=== PATIENT | male | born 1970 | race Caucasian/White ===

== ENCOUNTER 2016-12-16 00:40 | Emergency (ER) | payer MEDICAID ==
[~2016-12-16] VITALS: Ht 172.7 cm; Wt 113.0 kg
[~2016-12-16 00:40] MED LIST: ASPI-864 PO; ATOR-2 PO; ATOR20TA PO; ATROV INH; BRIM5DRO EACHEYE; CLOP75TA2 PO; EMPA1TAB5; EZET10TA PO; FENO145 PO; METF500T4 PO; METO25TA6 PO; OXYC5CAP12 PO; PROT40 PO; SERT50TA PO
[2016-12-16] MEDS ORDERED: DIAZEPAM 2 MG TABLET PO ONE (01:15)
[2016-12-16] MEDS ORDERED: KETOROLAC 60MG/2ML VIAL IM ONE (01:15)
[2016-12-16 06:13] VITALS: BP 148/88
== END 2016-12-16 06:15 | disposition home or self-care (01) ==
LOC: ER 00:41
DX: G89.29 Other chronic pain (principal); M54.5 Low back pain; I10 Essential (primary) hypertension; E11.9 Type 2 diabetes mellitus without complications; J44.9 Chronic obstructive pulmonary disease, unspecified; E78.00 Pure hypercholesterolemia, unspecified; Z88.0 Allergy status to penicillin; Z79.82 Long term (current) use of aspirin; Z86.59 Personal history of other mental and behavioral disorders; Z79.899 Other long term (current) drug therapy
CPT/HCPCS: 82962; 96372; 99283; J1885

== ENCOUNTER 2017-01-02 20:21 | Emergency (ER) | payer MEDICAID ==
[~2017-01-02] VITALS: Ht 177.8 cm; Wt 114.0 kg
[2017-01-02 21:15] VITALS: BP 111/95
== END 2017-01-02 23:44 | disposition home or self-care (01) ==
LOC: ER 22:40
DX: R51 Headache (principal); E11.9 Type 2 diabetes mellitus without complications; E78.00 Pure hypercholesterolemia, unspecified; F32.9 Major depressive disorder, single episode, unspecified; J44.9 Chronic obstructive pulmonary disease, unspecified; H40.9 Unspecified glaucoma; M19.90 Unspecified osteoarthritis, unspecified site; G43.909 Migraine, unspecified, not intractable, without status migrainosus; I51.9 Heart disease, unspecified; Z90.49 Acquired absence of other specified parts of digestive tract; Z98.890 Other specified postprocedural states; Z88.0 Allergy status to penicillin; Z79.82 Long term (current) use of aspirin; Z95.5 Presence of coronary angioplasty implant and graft; Z79.899 Other long term (current) drug therapy
CPT/HCPCS: 99282; Z7610

== ENCOUNTER 2017-02-22 12:48 | Emergency (ER) | payer MEDICAID ==
[~2017-02-22] VITALS: Ht 177.8 cm; Wt 118.0 kg
[2017-02-22] MEDS ORDERED: ACETAMINOPHEN 325MG TABLET PO ONE (13:45)
[2017-02-22 14:35] VITALS: BP 141/77
== END 2017-02-22 14:45 | disposition home or self-care (01) ==
LOC: ER 13:41
DX: M54.5 Low back pain (principal); M19.90 Unspecified osteoarthritis, unspecified site; I11.9 Hypertensive heart disease without heart failure; E11.9 Type 2 diabetes mellitus without complications; J44.9 Chronic obstructive pulmonary disease, unspecified; F32.9 Major depressive disorder, single episode, unspecified; E66.9 Obesity, unspecified; E78.00 Pure hypercholesterolemia, unspecified; Z90.49 Acquired absence of other specified parts of digestive tract; Z88.0 Allergy status to penicillin; Z79.82 Long term (current) use of aspirin; Z98.890 Other specified postprocedural states; Z68.37 Body mass index [BMI] 37.0-37.9, adult; W07.XXXA Fall from chair, initial encounter; Y93.89 Activity, other specified; Y92.018 Other place in single-family (private) house as the place of occurrence of the external cause
CPT/HCPCS: 99282

== ENCOUNTER 2017-03-15 04:32 | Emergency (ER) | payer MEDICAID ==
[~2017-03-15] VITALS: Ht 177.8 cm; Wt 118.0 kg
[2017-03-15 05:02] VITALS: BP 128/78
== END 2017-03-15 05:59 | disposition left against medical advice (07) ==
LOC: ER 04:32
DX: Z53.21 Procedure and treatment not carried out due to patient leaving prior to being seen by health care provider (principal)

== ENCOUNTER 2017-03-27 20:06 | Emergency (ER) | payer MEDICAID ==
[~2017-03-27] VITALS: Ht 177.8 cm; Wt 125.0 kg
[~2017-03-27 20:06] MED LIST changes: +CLOP75TA16 PO; -CLOP75TA2 PO; -EZET10TA PO; +ZET10 PO
[2017-03-27] MEDS ORDERED: SODIUM CHLORIDE 0.9% 1,000 ML IV ONE (20:29)
[2017-03-27 20:57] LABS: BASOPHILS % 1.5 % (0.0-2.0); HEMATOCRIT. 39.2 % (42.0-52.0); HEMOGLOBIN. 12.9 g/dL (14.0-18.0); LYMPHOCYTES % 35.9 % (20.0-50.0); MEAN CORPUSCULAR HEMOGLOBIN 28.6 pg (28.0-32.0); MEAN PLATELET VOLUME 8.6 fl (7.4-10.4); MONOCYTES % 8.8 % (2.0-8.0); NEUTROPHILS % 49.8 % (40.0-76.0); PLATELET 354 x1000/uL (130-400); RED CELL DISTRIBUTION WIDTH 13.9 % (11.6-14.6)
[2017-03-27 21:02] LABS: CHLORIDE 96 mEq/L (98-107)
[2017-03-27 21:08] LABS: CARBON DIOXIDE 24 mEq/L (21-32)
[2017-03-27] MEDS ORDERED: POTASSIUM CHLORIDE 20MEQ TABLET SR PO ONE (22:30)
[2017-03-27] MEDS ORDERED: KCL 20MEQ/100ML PREMIX 100 ML IV ONE (22:30)
[2017-03-27] MEDS ORDERED: MAGNESIUM 1 G PREMIX 100 ML IV ONE (23:30)
[2017-03-28] MEDS ORDERED: POTASSIUM CHLORIDE 20MEQ TABLET SR PO ONE (02:00)
[2017-03-28 02:42] VITALS: BP 123/69
== END 2017-03-28 02:46 | disposition home or self-care (01) ==
LOC: EDSEX → ER 20:48
DX: E87.6 Hypokalemia (principal); J44.9 Chronic obstructive pulmonary disease, unspecified; I10 Essential (primary) hypertension; E11.9 Type 2 diabetes mellitus without complications; Z79.82 Long term (current) use of aspirin; Z88.0 Allergy status to penicillin
CPT/HCPCS: 36415; 71010; 80048; 83735; 84132; 85025; 93005; 96361; 96365; 96366; 96368; 99285; J3475; J3480; Z7610; J7030

== ENCOUNTER 2017-04-01 22:50 | Inpatient (IN) | payer MEDICAID ==
[~2017-04-01] VITALS: Ht 177.8 cm; Wt 113.4 kg
[2017-04-02] MEDS ORDERED: SODIUM CHLORIDE 0.9% 1,000 ML IV ONE (00:26)
[2017-04-02] MEDS ORDERED: ONDANSETRON HCL 4MG/2ML VIAL IV STA (00:26)
[2017-04-02] MEDS ORDERED: MORPHINE SULFATE 4 MG/ML CPJ (NOT FOR IM USE) IV STA (00:26)
[2017-04-02 01:48] LABS: BASOPHILS % 0.8 % (0.0-2.0); EOSINOPHILS % 2.2 % (0.0-5.0); HEMATOCRIT. 38.5 % (42.0-52.0); HEMOGLOBIN. 12.7 g/dL (14.0-18.0); LYMPHOCYTES % 28.5 % (20.0-50.0); MEAN CORPUSCULAR HEMOGLOBIN 28.9 pg (28.0-32.0); MEAN CORPUSCULAR VOLUME 87.6 fL (80.0-94.0); MEAN PLATELET VOLUME 8.3 fl (7.4-10.4); MONOCYTES % 7.5 % (2.0-8.0); PLATELET 326 x1000/uL (130-400); RED CELL DISTRIBUTION WIDTH 14.2 % (11.6-14.6)
[2017-04-02 01:54] LABS: INR 1.1; PROTHROMBIN TIME 11.5 sec (9.4-11.6)
[2017-04-02 02:02] LABS: CARBON DIOXIDE 27 mEq/L (21-32); CHLORIDE 100 mEq/L (98-107); TROPONIN I < 0.02 ng/mL (0.00-0.04)
[2017-04-02] MEDS ORDERED: PANTOPRAZOLE SODIUM 40 MG/VIAL IV STA (02:45)
[2017-04-02] MEDS ORDERED: MORPHINE SULFATE 2 MG/ML CPJ (NOT FOR IM USE) IV PRN (08:15)
[2017-04-02 10:42] LABS: CLARITY URINE CLEAR (CLEAR); COLOR URINE YELLOW (YELLOW); GLUCOSE URINE 3+ (NEGATIVE); KETONES URINE NEGATIVE (NEGATIVE); LEUKOCYTE ESTERASE URINE NEGATIVE (NEGATIVE); NITRITE URINE NEGATIVE (NEGATIVE); OCCULT BLOOD URINE NEGATIVE (NEGATIVE); PH URINE 6.5 (4.5-8.0); PROTEIN URINE NEGATIVE (NEGATIVE); SPECIFIC GRAVITY URINE 1.041 (1.005-1.030)
[2017-04-02] MEDS ORDERED: ACETAMINOPHEN 325MG TABLET PO PRN (10:45)
[2017-04-02] MEDS ORDERED: ONDANSETRON HCL 4MG/2ML VIAL IV PRN (10:45)
[2017-04-02] MEDS ORDERED: IPRATROPIUM/ALBUTEROL 0.5-3(2.5)MG/3ML NEB INH PRN (10:45)
[2017-04-02] MEDS ORDERED: PANTOPRAZOLE SODIUM 40 MG/VIAL IV SCH ×2 (10:45→13:00)
[2017-04-02 11:58] VITALS: BP 106/64
[2017-04-02] MEDS ORDERED: SIMETHICONE 40 MG/0.6 ML 30ML ONE ×2 (13:26→13:40)
[2017-04-02] MEDS ORDERED: FENTANYL CITRATE/PF 50MCG/ML 2ML VIAL ONE (13:26)
[2017-04-02] MEDS ORDERED: MIDAZOLAM HCL 5 MG/5 ML VIAL ONE (13:26)
[2017-04-02] MEDS ORDERED: SODIUM CHLORIDE 0.9% 10ML VIAL ONE (13:40)
[2017-04-02] MEDS ORDERED: POTASSIUM CHLORIDE INJ 40 MEQ in DEXT 5% WATER 250 ML IV ONE (14:00)
[2017-04-02] MEDS ORDERED: DEXT 5%/0.45% NACL KCL 20MEQ/L 1,000 ML IV SCH (14:00)
[2017-04-02 14:25] LABS: HEPATITIS B SURFACE ANTIGEN NEGATIVE
[2017-04-02] MEDS ORDERED: MIDAZOLAM HCL 5 MG/5 ML VIAL IV PRN (14:47)
[2017-04-02] MEDS ORDERED: FENTANYL CITRATE/PF 50MCG/ML 2ML VIAL IV PRN (14:47)
[2017-04-02 14:52] LABS: HEPATITIS B CORE AB IGM NEGATIVE
[2017-04-02 14:53] LABS: HEPATITIS A AB IGM NEGATIVE (NEGATIVE)
[2017-04-02] MEDS ORDERED: OMEPRAZOLE 20MG CAPSULE EXTENDED RELEASE PO NR (15:15)
[2017-04-02 16:00] VITALS: BP 118/62
[2017-04-02] MEDS ORDERED: NAPROXEN PO (16:07)
[2017-04-02] MEDS ORDERED: TRAM50TA3 PO (16:07)
[2017-04-02] MEDS ORDERED: CLAR10 PO (16:07)
[2017-04-02] MEDS ORDERED: HYDR-523 PO (16:07)
[2017-04-02] MEDS ORDERED: GABA-290 PO (16:07)
[2017-04-02] MEDS ORDERED: PRILOSEC PO (16:07)
[2017-04-02] MEDS ORDERED: VENTOLIN (16:07)
[2017-04-02] MEDS ORDERED: IBUPROFEN PO (16:07)
[2017-04-02] MEDS ORDERED: FURO-151 PO (16:07)
[2017-04-02] MEDS ORDERED: LISI10TA5 PO (16:07)
[2017-04-02 17:27] VITALS: BP 118/62
[2017-04-02] MEDS ORDERED: PNEUMOCOCCAL 23-VAL P-SAC VAC 0.5 ML IM ONE (18:30)
[2017-04-02 20:00] VITALS: BP 100/48
[2017-04-02] MEDS ORDERED: DEXTROSE 50% WATER 50ML SYRINGE IV PRN (20:15)
[2017-04-02] MEDS: BLOOD SUGAR DIAGNOSTIC STRIP TEST SCH (21:00)
[2017-04-02] MEDS: INSULIN LISPRO 100 UNITS/ML SUBCUT SCH (21:00)
[2017-04-02] MEDS: TRAZODONE HCL 100MG TABLET PO SCH (22:32)
[2017-04-02] MEDS: ATORVASTATIN CALCIUM 40MG TABLET PO SCH (22:32)
[2017-04-02 22:33] VITALS: BP 100/67
[2017-04-02] MEDS: MORPHINE SULFATE 4 MG/ML CPJ (NOT FOR IM USE) IV PRN (22:54)
[2017-04-03] VITALS: BP 103/60
[2017-04-03 04:00] VITALS: BP 111/59
[2017-04-03] MEDS: OMEPRAZOLE 20MG CAPSULE EXTENDED RELEASE PO SCH (06:40)
[2017-04-03] MEDS: BLOOD SUGAR DIAGNOSTIC STRIP TEST SCH ×4 (06:41→20:24)
[2017-04-03] MEDS: INSULIN LISPRO 100 UNITS/ML SUBCUT SCH ×4 (06:42→20:53)
[2017-04-03 07:37] LABS: CARBON DIOXIDE 29 mEq/L (21-32); CHLORIDE 103 mEq/L (98-107)
[2017-04-03 07:42] LABS: BASOPHILS % 0.8 % (0.0-2.0); EOSINOPHILS % 3.5 % (0.0-5.0); HEMATOCRIT. 33.6 % (42.0-52.0); HEMOGLOBIN. 10.9 g/dL (14.0-18.0); LYMPHOCYTES % 35.4 % (20.0-50.0); MEAN CORPUSCULAR HEMOGLOBIN 28.9 pg (28.0-32.0); MEAN CORPUSCULAR VOLUME 88.8 fL (80.0-94.0); MEAN PLATELET VOLUME 8.3 fl (7.4-10.4); MONOCYTES % 7.5 % (2.0-8.0); NEUTROPHILS % 52.8 % (40.0-76.0); PLATELET 275 x1000/uL (130-400); RED BLOOD CELL COUNT 3.78 mill/uL (4.7-6.1); RED CELL DISTRIBUTION WIDTH 14.2 % (11.6-14.6)
[2017-04-03 08:00] VITALS: BP 112/79
[2017-04-03] MEDS: METOPROLOL TARTRATE 25MG TABLET PO SCH ×3 (08:29→17:00)
[2017-04-03 12:00] VITALS: BP 111/62
[2017-04-03 16:00] VITALS: BP 95/68
[2017-04-03] MEDS: DEXT 5%/0.45% NACL KCL 20MEQ/L 1,000 ML IV SCH (19:07)
[2017-04-03 20:00] VITALS: BP 96/43
[2017-04-03] MEDS: TRAZODONE HCL 100MG TABLET PO SCH (20:51)
[2017-04-03] MEDS: ATORVASTATIN CALCIUM 40MG TABLET PO SCH (20:51)
[2017-04-03] MEDS: MORPHINE SULFATE 4 MG/ML CPJ (NOT FOR IM USE) IV PRN (20:52)
[2017-04-04] VITALS: BP 90/46
[2017-04-04 04:00] VITALS: BP 97/52
[2017-04-04] MEDS: BLOOD SUGAR DIAGNOSTIC STRIP TEST SCH ×2 (05:56→12:31)
[2017-04-04] MEDS: OMEPRAZOLE 20MG CAPSULE EXTENDED RELEASE PO SCH (05:59)
[2017-04-04] MEDS: INSULIN LISPRO 100 UNITS/ML SUBCUT SCH ×2 (06:08→12:51)
[2017-04-04 07:15] LABS: CHLORIDE 104 mEq/L (98-107)
[2017-04-04 07:24] LABS: CARBON DIOXIDE 26 mEq/L (21-32)
[2017-04-04 08:00] VITALS: BP 130/67
[2017-04-04] MEDS ORDERED: POTASSIUM CHLORIDE 20MEQ TABLET SR PO NR (09:15)
[2017-04-04] MEDS: METOPROLOL TARTRATE 25MG TABLET PO SCH (09:58)
[2017-04-04 12:00] VITALS: BP 113/68
[2017-04-04] MEDS: DEXT 5%/0.45% NACL KCL 20MEQ/L 1,000 ML IV SCH (12:55)
[2017-04-04 13:13] VITALS: BP 113/68
== END 2017-04-04 13:40 | disposition home or self-care (01) | DRG 241 ==
LOC: EDSEX → ER 22:56 → 5WST 04-02 05:40 → EDBEDREQ 04-02 06:02 → ENRESERV 04-02 10:16
PROVIDERS: ADMIT Internal Medicine; ATTEND Internal Medicine
PROC: 0DB68ZX Excision of Stomach, Via Natural or Artificial Opening Endoscopic, Diagnostic (ICD-10-PCS; principal; 2017-04-02 14:00)
DX: K29.70 Gastritis, unspecified, without bleeding (principal); E11.40 Type 2 diabetes mellitus with diabetic neuropathy, unspecified; I10 Essential (primary) hypertension; D64.9 Anemia, unspecified; E78.5 Hyperlipidemia, unspecified; E87.6 Hypokalemia; F32.9 Major depressive disorder, single episode, unspecified; G47.00 Insomnia, unspecified; G47.33 Obstructive sleep apnea (adult) (pediatric); G89.29 Other chronic pain; I25.10 Atherosclerotic heart disease of native coronary artery without angina pectoris; K76.9 Liver disease, unspecified; K29.00 Acute gastritis without bleeding; M19.90 Unspecified osteoarthritis, unspecified site; J44.9 Chronic obstructive pulmonary disease, unspecified; Z79.82 Long term (current) use of aspirin; Z95.5 Presence of coronary angioplasty implant and graft; Z88.0 Allergy status to penicillin; Z79.84 Long term (current) use of oral hypoglycemic drugs; Z79.899 Other long term (current) drug therapy
CPT/HCPCS: 36415; 71010; 72100; 76705; 80048; 80053; 80076; 81001; 82962; 83605; 83690; 83735; 84484; 85025; 85610; 86677; 86705; 86709; 86803; 87340; 90732; 93005; 93306; 93970; 96374; 96375; 99285; A4216; C9113; J1815; J2250; J2270; J2405; J3010; J3480; J7030; J7040; J7060

== ENCOUNTER 2017-04-18 14:07 | Emergency (ER) | payer MEDICAID ==
[~2017-04-18] VITALS: Ht 175.3 cm; Wt 80.0 kg
[~2017-04-18 14:07] MED LIST changes: -ATOR20TA PO; -ATROV INH; +CLAR10 PO; +FURO-151 PO; +GABA-290 PO; +HYDR-523 PO; +LISI10TA5 PO; -METF500T4 PO; -OXYC5CAP12 PO; +TRAM50TA3 PO; -ZET10 PO
[2017-04-18] MEDS ORDERED: KETOROLAC 30MG/ML VIAL IV STA (14:41)
[2017-04-18] MEDS ORDERED: SODIUM CHLORIDE 0.9% 1,000 ML IV ONE (14:41)
[2017-04-18] MEDS ORDERED: METOCLOPRAMIDE HCL 10MG/2ML VIAL IV ONE (14:45)
[2017-04-18 15:05] VITALS: BP 135/55
== END 2017-04-18 15:49 | disposition home or self-care (01) ==
LOC: EDSEX 14:07 → ER 14:27
DX: R51 Headache (principal); J44.9 Chronic obstructive pulmonary disease, unspecified; F32.9 Major depressive disorder, single episode, unspecified; E11.40 Type 2 diabetes mellitus with diabetic neuropathy, unspecified; Z79.82 Long term (current) use of aspirin; Z88.0 Allergy status to penicillin
CPT/HCPCS: 96361; 96374; 96375; 99284; J1885; J2765; J7030; Z7610

== ENCOUNTER 2017-09-01 20:09 | Emergency (ER) | payer MEDICAID ==
[~2017-09-01] VITALS: Ht 177.8 cm; Wt 115.2 kg
[2017-09-01] MEDS ORDERED: ONDANSETRON HCL 4MG/2ML VIAL IV STA (23:17)
[2017-09-01] MEDS ORDERED: MORPHINE SULFATE 4 MG/ML CPJ (NOT FOR IM USE) IV STA (23:17)
[2017-09-02 00:41] LABS: HEMATOCRIT. 35.3 % (42.0-52.0); HEMOGLOBIN. 11.3 g/dL (14.0-18.0); LYMPHOCYTES % 24.2 % (20.0-50.0); MEAN CORPUSCULAR HEMOGLOBIN 28.2 pg (28.0-32.0); MEAN CORPUSCULAR VOLUME 88.3 fL (80.0-94.0); MONOCYTES % 6.4 % (2.0-8.0); NEUTROPHILS % 64.4 % (40.0-76.0); PLATELET 356 x1000/uL (130-400); RED CELL DISTRIBUTION WIDTH 14.9 % (11.6-14.6)
[2017-09-02 00:48] LABS: CHLORIDE 102 mEq/L (98-107)
[2017-09-02] MEDS ORDERED: GABAPENTIN 300MG CAPSULE PO ONE (02:30)
[2017-09-02] MEDS ORDERED: MORPHINE SULFATE 4 MG/ML CPJ (NOT FOR IM USE) IV ONE (02:30)
[2017-09-02 03:00] VITALS: BP 123/77
[2017-09-02] MEDS ORDERED: GABAPENTIN 300MG CAPSULE PO NR (03:15)
== END 2017-09-02 04:28 | disposition home or self-care (01) ==
LOC: ER 22:47
DX: G50.0 Trigeminal neuralgia (principal); E11.9 Type 2 diabetes mellitus without complications; I10 Essential (primary) hypertension; E78.00 Pure hypercholesterolemia, unspecified; F32.9 Major depressive disorder, single episode, unspecified; I25.10 Atherosclerotic heart disease of native coronary artery without angina pectoris; Z88.0 Allergy status to penicillin; Z79.82 Long term (current) use of aspirin; Z79.01 Long term (current) use of anticoagulants
CPT/HCPCS: 36415; 70450; 80048; 85025; 96374; 96375; 96376; 99285; J2270; J2405; Z7610

== ENCOUNTER 2017-09-07 18:44 | Emergency (ER) | payer MEDICAID ==
[~2017-09-07] VITALS: Ht 177.8 cm; Wt 113.0 kg
[2017-09-07 19:27] VITALS: BP 141/72
[2017-09-07] MEDS ORDERED: IBUPROFEN 800MG TABLET PO ONE (20:00)
[2017-09-07] MEDS ORDERED: HYDROCODONE/APAP 7.5/325MG 1 TAB TABLET PO ONE (20:00)
== END 2017-09-07 21:10 | disposition home or self-care (01) ==
LOC: ER 20:54
DX: G89.18 Other acute postprocedural pain (principal); H57.11 Ocular pain, right eye; I10 Essential (primary) hypertension; E11.9 Type 2 diabetes mellitus without complications; E78.00 Pure hypercholesterolemia, unspecified
CPT/HCPCS: 99283; Z7610

== ENCOUNTER 2017-11-06 10:08 | Emergency (ER) | payer MEDICAID ==
[~2017-11-06] VITALS: Ht 177.8 cm; Wt 109.0 kg
[~2017-11-06 10:08] MED LIST changes: +ALBU18HF2 INH; -EMPA1TAB5; +EMPA1TAB5 PO; +FLUT100B IH; +IBUP-2029 PO; -TRAM50TA3 PO; +TRAZ-132 PO
[2017-11-06 10:45] LABS: BASOPHILS % 1.6 % (0.0-2.0); EOSINOPHILS % 2.4 % (0.0-5.0); HEMATOCRIT. 42.6 % (42.0-52.0); HEMOGLOBIN. 13.9 g/dL (14.0-18.0); LYMPHOCYTES % 25.2 % (20.0-50.0); MEAN CORPUSCULAR HEMOGLOBIN 27.7 pg (28.0-32.0); MEAN CORPUSCULAR VOLUME 84.9 fL (80.0-94.0); MEAN PLATELET VOLUME 8.4 fl (7.4-10.4); MONOCYTES % 7.1 % (2.0-8.0); NEUTROPHILS % 63.7 % (40.0-76.0); PLATELET 331 x1000/uL (130-400); RED BLOOD CELL COUNT 5.01 mill/uL (4.7-6.1); RED CELL DISTRIBUTION WIDTH 14.9 % (11.6-14.6)
[2017-11-06 10:50] LABS: CHLORIDE 102 mEq/L (98-107)
[2017-11-06 11:15] LABS: PROTHROMBIN TIME 10.7 sec (9.4-11.6)
[2017-11-06] MEDS ORDERED: SODIUM CHLORIDE 0.9% 1,000 ML IV NR (11:45)
[2017-11-06] MEDS ORDERED: ASPIRIN 81MG TABLET PO ONE (13:30)
[2017-11-06] MEDS ORDERED: ACETAMINOPHEN 325MG TABLET PO ONE (16:15)
[2017-11-06 17:07] VITALS: BP 119/55
== END 2017-11-06 17:10 | disposition home or self-care (01) ==
LOC: ER 10:08
DX: I10 Essential (primary) hypertension (principal); E86.0 Dehydration; D64.9 Anemia, unspecified; R79.89 Other specified abnormal findings of blood chemistry; J44.9 Chronic obstructive pulmonary disease, unspecified; E78.00 Pure hypercholesterolemia, unspecified; E11.9 Type 2 diabetes mellitus without complications; Z88.0 Allergy status to penicillin; Z79.82 Long term (current) use of aspirin; Z79.01 Long term (current) use of anticoagulants
CPT/HCPCS: 36415; 71045; 80053; 83880; 84484; 85025; 85610; 93005; 96360; 96361; 99285

== ENCOUNTER 2017-11-14 20:48 | Emergency (ER) | payer MEDICAID ==
[~2017-11-14] VITALS: Ht 177.8 cm; Wt 105.0 kg
[~2017-11-14 20:48] MED LIST changes: -ALBU18HF2 INH
[2017-11-15] MEDS ORDERED: KETOROLAC 60MG/2ML VIAL IM STA (04:51)
[2017-11-15 06:54] VITALS: BP 107/59
== END 2017-11-15 07:04 | disposition home or self-care (01) ==
LOC: ER 11-15 00:32
DX: M54.2 Cervicalgia (principal); Q75.1 Craniofacial dysostosis; E78.00 Pure hypercholesterolemia, unspecified; E11.9 Type 2 diabetes mellitus without complications; J45.909 Unspecified asthma, uncomplicated; I10 Essential (primary) hypertension; Z88.0 Allergy status to penicillin; Z79.82 Long term (current) use of aspirin; Z90.49 Acquired absence of other specified parts of digestive tract; Z98.890 Other specified postprocedural states
CPT/HCPCS: 96372; 99283; J1885; Z7610

== ENCOUNTER 2017-11-18 19:09 | Emergency (ER) | payer MEDICAID ==
[~2017-11-18] VITALS: Ht 177.8 cm; Wt 104.0 kg
[2017-11-19] MEDS ORDERED: KETOROLAC 30MG/ML VIAL IM ONE (08:00)
[2017-11-19] MEDS ORDERED: ACETAMINOPHEN WITH CODEINE 300/30MG TABLET PO ONE (10:30)
[2017-11-19] MEDS ORDERED: MORPHINE SULFATE 10 MG/ML CPJ IM ONE (13:30)
[2017-11-19] MEDS ORDERED: ONDANSETRON HCL 4MG TABLET PO ONE (13:30)
[2017-11-19 16:45] VITALS: BP 98/48
== END 2017-11-19 17:15 | disposition home or self-care (01) ==
LOC: ER 19:09
DX: G89.29 Other chronic pain (principal); M54.5 Low back pain; M54.2 Cervicalgia; R20.0 Anesthesia of skin; R20.2 Paresthesia of skin; J45.909 Unspecified asthma, uncomplicated; E78.00 Pure hypercholesterolemia, unspecified; E11.9 Type 2 diabetes mellitus without complications; Z88.0 Allergy status to penicillin; Z79.82 Long term (current) use of aspirin
CPT/HCPCS: 82962; 96372; 99284; J1885; J2270; Q0162

== ENCOUNTER 2017-12-11 22:55 | Inpatient (IN) | payer MEDICAID ==
[~2017-12-11] VITALS: Ht 177.8 cm; Wt 107.5 kg
[2017-12-12] MEDS ORDERED: SODIUM CHLORIDE 0.9% 1,000 ML IV ONE (02:25)
[2017-12-12 03:02] LABS: BASOPHILS % 0.8 % (0.0-2.0); EOSINOPHILS % 3.4 % (0.0-5.0); HEMATOCRIT. 41.2 % (42.0-52.0); HEMOGLOBIN. 13.7 g/dL (14.0-18.0); LYMPHOCYTES % 32.4 % (20.0-50.0); MEAN CORPUSCULAR HEMOGLOBIN 28.1 pg (28.0-32.0); MEAN CORPUSCULAR VOLUME 84.5 fL (80.0-94.0); MEAN PLATELET VOLUME 8.1 fl (7.4-10.4); MONOCYTES % 7.6 % (2.0-8.0); NEUTROPHILS % 55.8 % (40.0-76.0); PLATELET 461 x1000/uL (130-400); RED BLOOD CELL COUNT 4.87 mill/uL (4.7-6.1); RED CELL DISTRIBUTION WIDTH 15.8 % (11.6-14.6)
[2017-12-12 03:04] LABS: CHLORIDE 96 mEq/L (98-107)
[2017-12-12 03:05] LABS: INR 1.1
[2017-12-12 03:08] LABS: ETHANOL BLOOD < 10 mg/dL
[2017-12-12] MEDS ORDERED: KETOROLAC 15MG/ML VIAL IV ONE (04:00)
[2017-12-12 05:19] LABS: CLARITY URINE CLEAR (CLEAR); COLOR URINE YELLOW (YELLOW); KETONES URINE NEGATIVE (NEGATIVE); LEUKOCYTE ESTERASE URINE NEGATIVE (NEGATIVE); NITRITE URINE NEGATIVE (NEGATIVE); OCCULT BLOOD URINE NEGATIVE (NEGATIVE); PROTEIN URINE NEGATIVE (NEGATIVE); SPECIFIC GRAVITY URINE 1.018 (1.005-1.030); UROBILINOGEN URINE 0.2 E.U./dL (0.2-1.0)
[2017-12-12 05:33] LABS: *AMPHETAMINES SCREEN URINE NEGATIVE (NEGATIVE); *BARBITURATES SCREEN URINE NEGATIVE (NEGATIVE); *BENZODIAZEPINES SCREEN URINE NEGATIVE (NEGATIVE); *COCAINE SCREEN URINE NEGATIVE (NEGATIVE); METHADONE URINE SCREEN NEGATIVE (NEGATIVE); OPIATES URINE SCREEN NEGATIVE (NEGATIVE)
[2017-12-12 05:34] LABS: CANNABINOID URINE SCREEN NEGATIVE (NEGATIVE); PHENCYCLIDINE URINE SCREEN NEGATIVE (NEGATIVE)
[2017-12-12 09:00] VITALS: BP_SYST 91; BP_SYST 99; BP_DIAS 53; BP_DIAS 57
[2017-12-12] MEDS ORDERED: DEXTROSE 50% WATER 50ML SYRINGE IV PRN (11:30)
[2017-12-12 12:00] VITALS: BP 98/54
[2017-12-12] MEDS: BLOOD SUGAR DIAGNOSTIC STRIP TEST SCH ×3 (12:20→21:00)
[2017-12-12] MEDS: SODIUM CHLORIDE 0.9% 1,000 ML IV SCH (12:54)
[2017-12-12] MEDS: INSULIN LISPRO 100 UNITS/ML SUBCUT SCH ×3 (14:12→21:00)
[2017-12-12] MEDS ORDERED: CLONIDINE 0.1MG TABLET PO PRN (14:15)
[2017-12-12] MEDS ORDERED: ACETAMINOPHEN 325MG TABLET PO PRN (14:15)
[2017-12-12] MEDS ORDERED: IPRATROPIUM/ALBUTEROL 0.5-3(2.5)MG/3ML NEB INH PRN (14:15)
[2017-12-12] MEDS ORDERED: ONDANSETRON 4MG ODT PO PRN (14:30)
[2017-12-12 16:00] VITALS: BP 101/60
[2017-12-12] MEDS: METOPROLOL TARTRATE 25MG TABLET PO SCH (17:00)
[2017-12-12] MEDS: CLOPIDOGREL 75MG TABLET PO SCH (18:52)
[2017-12-12] MEDS: PANTOPRAZOLE 40MG DR TABLET PO SCH (18:52)
[2017-12-12] MEDS: ASPIRIN 81MG EC TABLET PO SCH (18:52)
[2017-12-12] MEDS: FENOFIBRATE NANOCRYSTALLIZED 145MG TABLET PO SCH (18:52)
[2017-12-12] MEDS: SERTRALINE HCL 100MG TABLET PO SCH (18:53)
[2017-12-12] MEDS: ENOXAPARIN 40MG/0.4ML SYR SUBCUT SCH (18:53)
[2017-12-12 19:59] VITALS: BP 105/56
[2017-12-12] MEDS: TRAZODONE HCL 100MG TABLET PO SCH (21:00)
[2017-12-12 21:09] LABS: *AMPHETAMINES SCREEN URINE NEGATIVE (NEGATIVE); *BARBITURATES SCREEN URINE NEGATIVE (NEGATIVE); *BENZODIAZEPINES SCREEN URINE NEGATIVE (NEGATIVE); *COCAINE SCREEN URINE NEGATIVE (NEGATIVE)
[2017-12-12 21:10] LABS: CANNABINOID URINE SCREEN NEGATIVE (NEGATIVE); METHADONE URINE SCREEN NEGATIVE (NEGATIVE); OPIATES URINE SCREEN NEGATIVE (NEGATIVE); PHENCYCLIDINE URINE SCREEN NEGATIVE (NEGATIVE)
[2017-12-13] VITALS: BP 104/64
[2017-12-13] MEDS: SODIUM CHLORIDE 0.9% 1,000 ML IV SCH ×2 (00:06→11:14)
[2017-12-13 00:23] LABS: CREATINE KINASE 134 IU/L (39-308)
[2017-12-13 00:27] LABS: CREATINE KINASE MB FRACTION 2.8 ng/mL (0.5-3.6)
[2017-12-13 04:00] VITALS: BP 101/67
[2017-12-13] MEDS: BLOOD SUGAR DIAGNOSTIC STRIP TEST SCH ×3 (06:24→21:00)
[2017-12-13 07:08] LABS: BASOPHILS % 0.8 % (0.0-2.0); EOSINOPHILS % 3.2 % (0.0-5.0); HEMOGLOBIN. 12.7 g/dL (14.0-18.0); LYMPHOCYTES % 25.9 % (20.0-50.0); MEAN CORPUSCULAR HEMOGLOBIN 27.8 pg (28.0-32.0); MEAN CORPUSCULAR VOLUME 85.1 fL (80.0-94.0); MEAN PLATELET VOLUME 8.3 fl (7.4-10.4); NEUTROPHILS % 63.1 % (40.0-76.0); PLATELET 334 x1000/uL (130-400); RED BLOOD CELL COUNT 4.58 mill/uL (4.7-6.1); RED CELL DISTRIBUTION WIDTH 16.2 % (11.6-14.6)
[2017-12-13] MEDS ORDERED: PANTOPRAZOLE 40MG DR TABLET PO SCH (07:20)
[2017-12-13] MEDS: PANTOPRAZOLE 40MG DR TABLET PO SCH (07:20)
[2017-12-13] MEDS: INSULIN LISPRO 100 UNITS/ML SUBCUT SCH ×2 (07:50→12:50)
[2017-12-13 07:54] LABS: CHLORIDE 103 mEq/L (98-107)
[2017-12-13 08:00] VITALS: BP 109/75
[2017-12-13 08:14] LABS: CREATINE KINASE 93 IU/L (39-308)
[2017-12-13 08:17] LABS: CREATINE KINASE MB FRACTION 1.8 ng/mL (0.5-3.6)
[2017-12-13] MEDS ORDERED: FENOFIBRATE NANOCRYSTALLIZED 145MG TABLET PO SCH (09:00)
[2017-12-13] MEDS ORDERED: SERTRALINE HCL 100MG TABLET PO SCH (09:00)
[2017-12-13] MEDS: ASPIRIN 81MG EC TABLET PO SCH (09:05)
[2017-12-13] MEDS: METOPROLOL TARTRATE 25MG TABLET PO SCH ×2 (09:06→18:13)
[2017-12-13] MEDS: CLOPIDOGREL 75MG TABLET PO SCH (09:06)
[2017-12-13] MEDS: SERTRALINE HCL 100MG TABLET PO SCH (09:07)
[2017-12-13] MEDS: FENOFIBRATE NANOCRYSTALLIZED 145MG TABLET PO SCH (09:16)
[2017-12-13] MEDS: HYDROCODONE/ACETAMINOPHEN 5/325MG TABLET PO PRN ×2 (10:24→17:47)
[2017-12-13 12:00] VITALS: BP 107/72
[2017-12-13] MEDS: ENOXAPARIN 40MG/0.4ML SYR SUBCUT SCH (15:23)
[2017-12-13 16:00] VITALS: BP 118/78
[2017-12-13] MEDS ORDERED: MORPHINE SULFATE 4 MG/ML CPJ (NOT FOR IM USE) IV NR (18:30)
[2017-12-13] MEDS: TRAZODONE HCL 100MG TABLET PO SCH (22:26)
[2017-12-14] VITALS: BP 92/52
[2017-12-14] MEDS: SODIUM CHLORIDE 0.9% 1,000 ML IV SCH (03:30)
[2017-12-14 04:00] VITALS: BP 100/39
[2017-12-14] MEDS: BLOOD SUGAR DIAGNOSTIC STRIP TEST SCH ×2 (07:20→11:23)
[2017-12-14] MEDS: INSULIN LISPRO 100 UNITS/ML SUBCUT SCH ×2 (07:50→11:23)
[2017-12-14] MEDS: SERTRALINE HCL 100MG TABLET PO SCH (08:00)
[2017-12-14] MEDS: PANTOPRAZOLE 40MG DR TABLET PO SCH (08:14)
[2017-12-14] MEDS: CLOPIDOGREL 75MG TABLET PO SCH (08:32)
[2017-12-14] MEDS: ASPIRIN 81MG EC TABLET PO SCH (08:33)
[2017-12-14] MEDS: FENOFIBRATE NANOCRYSTALLIZED 145MG TABLET PO SCH (08:33)
[2017-12-14] MEDS: METOPROLOL TARTRATE 25MG TABLET PO SCH (08:34)
[2017-12-14 08:49] VITALS: BP 111/63
[2017-12-14] MEDS: HYDROCODONE/ACETAMINOPHEN 5/325MG TABLET PO PRN (10:19)
[2017-12-14 12:00] VITALS: BP 138/82
== END 2017-12-14 14:35 | disposition home or self-care (01) | DRG 469 ==
LOC: ER 22:55 → 6WST 12-12 04:14 → EDBEDREQ 12-12 04:23 → ENRESERV 12-12 08:00
PROVIDERS: ADMIT Internal Medicine; ATTEND Internal Medicine
DX: N17.0 Acute kidney failure with tubular necrosis (principal); I95.9 Hypotension, unspecified; E11.65 Type 2 diabetes mellitus with hyperglycemia; E87.1 Hypo-osmolality and hyponatremia; M48.02 Spinal stenosis, cervical region; I10 Essential (primary) hypertension; D72.829 Elevated white blood cell count, unspecified; E78.5 Hyperlipidemia, unspecified; F32.9 Major depressive disorder, single episode, unspecified; I25.10 Atherosclerotic heart disease of native coronary artery without angina pectoris; J45.909 Unspecified asthma, uncomplicated; K21.9 Gastro-esophageal reflux disease without esophagitis; M50.30 Other cervical disc degeneration, unspecified cervical region; M51.36 Other intervertebral disc degeneration, lumbar region; R55 Syncope and collapse; M48.061 Spinal stenosis, lumbar region without neurogenic claudication; Z79.899 Other long term (current) drug therapy; Z95.5 Presence of coronary angioplasty implant and graft; Z88.0 Allergy status to penicillin; Z79.82 Long term (current) use of aspirin; I25.2 Old myocardial infarction
CPT/HCPCS: 36415; 70450; 71045; 80048; 80053; 80305; 81003; 82550; 82553; 82962; 84484; 85025; 85610; 93005; 93970; G0482; J1650; J1815; J1885; J2270; J7030

== ENCOUNTER 2018-01-22 12:03 | Emergency (ER) | payer MEDICAID ==
[~2018-01-22] VITALS: Ht 177.8 cm; Wt 107.0 kg
[~2018-01-22 12:03] MED LIST changes: -FURO-151 PO
[2018-01-22] MEDS ORDERED: MORPHINE SULFATE 10 MG/ML CPJ IM ONE (14:45)
[2018-01-22] MEDS ORDERED: KETOROLAC 30MG/ML VIAL IM ONE (14:45)
[2018-01-22] MEDS ORDERED: HYDROCODONE/ACETAMINOPHEN 5/325MG TABLET PO ONE (18:45)
[2018-01-22 18:52] VITALS: BP 129/70
== END 2018-01-22 19:28 | disposition home or self-care (01) ==
LOC: ER 12:03
DX: R51 Headache (principal); I10 Essential (primary) hypertension; E11.9 Type 2 diabetes mellitus without complications; E78.00 Pure hypercholesterolemia, unspecified; Z88.0 Allergy status to penicillin
CPT/HCPCS: 70450; 96372; 99284; J1885; J2270; Z7610

== ENCOUNTER 2018-04-02 18:05 | Emergency (ER) | payer MEDICAID ==
[~2018-04-02] VITALS: Ht 177.8 cm; Wt 113.0 kg
[~2018-04-02 18:05] MED LIST changes: -TRAZ-132 PO; +TRAZ-213 PO
[2018-04-02] MEDS ORDERED: METOCLOPRAMIDE HCL 10MG/2ML VIAL IV ONE (19:15)
[2018-04-02] MEDS ORDERED: KETOROLAC 15MG/ML VIAL IV ONE (19:15)
[2018-04-02] MEDS ORDERED: DIPHENHYDRAMINE 50MG/ML VIAL IV ONE (19:15)
[2018-04-02] MEDS ORDERED: SODIUM CHLORIDE 0.9% 1,000 ML IV ONE (19:15)
[2018-04-02 21:47] VITALS: BP 119/69
== END 2018-04-02 21:55 | disposition home or self-care (01) ==
LOC: ER 18:24
DX: R51 Headache (principal); I10 Essential (primary) hypertension; E11.9 Type 2 diabetes mellitus without complications; E78.00 Pure hypercholesterolemia, unspecified; Z79.899 Other long term (current) drug therapy; Z79.82 Long term (current) use of aspirin; Z88.0 Allergy status to penicillin; Z90.49 Acquired absence of other specified parts of digestive tract
CPT/HCPCS: 96361; 96374; 96375; 99285; J1200; J1885; J2765; J7030; Z7610

== ENCOUNTER 2019-01-21 16:47 | Inpatient (IN) | payer MEDICAID ==
[~2019-01-21] VITALS: Ht 177.8 cm; Wt 108.0 kg
[~2019-01-21 16:47] MED LIST changes: -CLOP75TA16 PO; +CLOP75TA4 PO
[2019-01-21 17:24] LABS: BASOPHILS % 1.3 % (0.0-2.0); EOSINOPHILS % 3.1 % (0.0-5.0); HEMATOCRIT. 43.1 % (42.0-52.0); HEMOGLOBIN. 14.1 g/dL (14.0-18.0); LYMPHOCYTES % 26.3 % (20.0-50.0); MEAN CORPUSCULAR HEMOGLOBIN 30.2 pg (28.0-32.0); MEAN CORPUSCULAR VOLUME 92.4 fL (80.0-94.0); MEAN PLATELET VOLUME 7.8 fl (7.4-10.4); MONOCYTES % 5.9 % (2.0-8.0); NEUTROPHILS % 63.4 % (40.0-76.0); PLATELET 402 x1000/uL (130-400); RED BLOOD CELL COUNT 4.66 mill/uL (4.7-6.1); RED CELL DISTRIBUTION WIDTH 13.9 % (11.6-14.6)
[2019-01-21 17:26] LABS: CHLORIDE 98 mEq/L (98-107)
[2019-01-21 17:30] LABS: ETHANOL BLOOD < 10 mg/dL
[2019-01-21 17:31] LABS: PARTIAL THROMBOPLASTIN TIME 27.1 sec (23.4-31.0)
[2019-01-21] MEDS ORDERED: ONDANSETRON HCL 4MG/2ML INJ IV ONE (21:45)
[2019-01-21] MEDS ORDERED: MORPHINE SULFATE 4 MG/ML CPJ (NOT FOR IM USE) IV ONE (21:45)
[2019-01-21 21:55] LABS: CLARITY URINE CLEAR (CLEAR); COLOR URINE YELLOW (YELLOW); KETONES URINE NEGATIVE (NEGATIVE); LEUKOCYTE ESTERASE URINE NEGATIVE (NEGATIVE); NITRITE URINE NEGATIVE (NEGATIVE); OCCULT BLOOD URINE NEGATIVE (NEGATIVE); PROTEIN URINE NEGATIVE (NEGATIVE); UROBILINOGEN URINE 0.2 E.U./dL (0.2-1.0)
[2019-01-21 22:16] LABS: METHADONE URINE SCREEN NEGATIVE (NEGATIVE); OPIATES URINE SCREEN PRESUMTIVE POSITIVE (NEGATIVE); PHENCYCLIDINE URINE SCREEN NEGATIVE (NEGATIVE)
[2019-01-21 22:17] LABS: *AMPHETAMINES SCREEN URINE NEGATIVE (NEGATIVE); *BARBITURATES SCREEN URINE NEGATIVE (NEGATIVE); *BENZODIAZEPINES SCREEN URINE PRESUMTIVE POSITIVE (NEGATIVE); *COCAINE SCREEN URINE NEGATIVE (NEGATIVE); CANNABINOID URINE SCREEN NEGATIVE (NEGATIVE)
[2019-01-22] VITALS (8 sets, daily range): BP systolic 101–131; BP diastolic 59–76
[2019-01-22] MEDS ORDERED: DEXTROSE 50% WATER 50ML SYRINGE IV PRN (04:15)
[2019-01-22] MEDS ORDERED: ALBUTEROL (0.083%) 2.5MG/3ML NEB HHN PRN (04:15)
[2019-01-22] MEDS ORDERED: ONDANSETRON HCL 4MG/2ML INJ IV PRN (04:15)
[2019-01-22] MEDS: BLOOD SUGAR DIAGNOSTIC STRIP TEST SCH ×4 (06:23→21:40)
[2019-01-22] MEDS: MORPHINE SULFATE 4 MG/ML CPJ (NOT FOR IM USE) IV PRN ×3 (06:26→21:40)
[2019-01-22 07:14] LABS: BASOPHILS % 0.6 % (0.0-2.0); EOSINOPHILS % 2.8 % (0.0-5.0); HEMATOCRIT. 38.8 % (42.0-52.0); HEMOGLOBIN. 12.8 g/dL (14.0-18.0); LYMPHOCYTES % 25.8 % (20.0-50.0); MEAN CORPUSCULAR HEMOGLOBIN 30.3 pg (28.0-32.0); MEAN CORPUSCULAR VOLUME 92.3 fL (80.0-94.0); MEAN PLATELET VOLUME 7.9 fl (7.4-10.4); MONOCYTES % 8.1 % (2.0-8.0); NEUTROPHILS % 62.7 % (40.0-76.0); PLATELET 345 x1000/uL (130-400)
[2019-01-22] MEDS: INSULIN LISPRO 100 UNITS/ML SUBCUT SCH ×4 (07:40→21:39)
[2019-01-22 07:41] LABS: CHLORIDE 100 mEq/L (98-107)
[2019-01-22 08:12] LABS: CREATINE KINASE MB FRACTION < 1.0 ng/mL (0.5-3.6)
[2019-01-22] MEDS: GABAPENTIN 400MG CAPSULE PO SCH ×2 (08:18→16:33)
[2019-01-22] MEDS: SERTRALINE HCL 100MG TABLET PO SCH (08:18)
[2019-01-22] MEDS: LISINOPRIL 10MG TABLET PO SCH (08:19)
[2019-01-22] MEDS: ASPIRIN 81MG TABLET PO SCH (08:19)
[2019-01-22] MEDS: CLOPIDOGREL 75MG TABLET PO SCH (08:19)
[2019-01-22] MEDS: FENOFIBRATE NANOCRYSTALLIZED 145MG TABLET PO SCH (11:42)
[2019-01-22 16:24] LABS: CREATINE KINASE MB FRACTION < 1.0 ng/mL (0.5-3.6)
[2019-01-22] MEDS: MORPHINE SULFATE 2 MG/ML CPJ (NOT FOR IM USE) IV PRN (18:45)
[2019-01-22] MEDS: ATORVASTATIN CALCIUM 40MG TABLET PO SCH (21:40)
[2019-01-23 04:00] VITALS: BP 109/71
[2019-01-23] MEDS: BLOOD SUGAR DIAGNOSTIC STRIP TEST SCH ×4 (06:18→20:53)
[2019-01-23] MEDS: MORPHINE SULFATE 2 MG/ML CPJ (NOT FOR IM USE) IV PRN ×3 (06:27→20:57)
[2019-01-23] MEDS: INSULIN LISPRO 100 UNITS/ML SUBCUT SCH ×4 (06:31→20:53)
[2019-01-23 08:00] VITALS: BP 100/60
[2019-01-23] MEDS: ASPIRIN 81MG TABLET PO SCH (08:39)
[2019-01-23] MEDS: CLOPIDOGREL 75MG TABLET PO SCH (08:39)
[2019-01-23] MEDS: FENOFIBRATE NANOCRYSTALLIZED 145MG TABLET PO SCH (08:39)
[2019-01-23] MEDS: GABAPENTIN 400MG CAPSULE PO SCH ×2 (08:39→16:26)
[2019-01-23] MEDS: SERTRALINE HCL 100MG TABLET PO SCH (08:40)
[2019-01-23] MEDS: LISINOPRIL 10MG TABLET PO SCH (09:00)
[2019-01-23 12:00] VITALS: BP 122/77
[2019-01-23 20:00] VITALS: BP 109/73
[2019-01-23] MEDS: ATORVASTATIN CALCIUM 40MG TABLET PO SCH (20:57)
[2019-01-23 23:37] VITALS: BP 116/67
[2019-01-24] MEDS: MORPHINE SULFATE 4 MG/ML CPJ (NOT FOR IM USE) IV PRN ×3 (02:23→16:14)
[2019-01-24 04:00] VITALS: BP 113/80
[2019-01-24] MEDS: BLOOD SUGAR DIAGNOSTIC STRIP TEST SCH ×4 (06:10→21:00)
[2019-01-24] MEDS: INSULIN LISPRO 100 UNITS/ML SUBCUT SCH ×4 (06:10→22:22)
[2019-01-24 08:00] VITALS: BP 92/51
[2019-01-24] MEDS: LISINOPRIL 10MG TABLET PO SCH (09:00)
[2019-01-24] MEDS: FENOFIBRATE NANOCRYSTALLIZED 145MG TABLET PO SCH (09:10)
[2019-01-24] MEDS: CLOPIDOGREL 75MG TABLET PO SCH (09:10)
[2019-01-24] MEDS: SERTRALINE HCL 100MG TABLET PO SCH (09:10)
[2019-01-24] MEDS: ASPIRIN 81MG TABLET PO SCH (09:10)
[2019-01-24] MEDS: GABAPENTIN 400MG CAPSULE PO SCH ×2 (09:10→17:04)
[2019-01-24 12:00] VITALS: BP 103/66
[2019-01-24 16:00] VITALS: BP 113/84
[2019-01-24 20:00] VITALS: BP_SYST 104; BP_SYST 106; BP_SYST 122; BP_DIAS 62; BP_DIAS 68; BP_DIAS 69
[2019-01-24 21:38] VITALS: BP 122/62
[2019-01-24] MEDS: HYDROCODONE/ACETAMINOPHEN 10/325MG TABLET PO PRN (22:00)
[2019-01-24] MEDS: ATORVASTATIN CALCIUM 40MG TABLET PO SCH (22:07)
[2019-01-25] VITALS (8 sets, daily range): BP systolic 101–165; BP diastolic 56–89
[2019-01-25] MEDS: BLOOD SUGAR DIAGNOSTIC STRIP TEST SCH ×3 (06:37→17:25)
[2019-01-25] MEDS: INSULIN LISPRO 100 UNITS/ML SUBCUT SCH ×3 (06:37→18:00)
[2019-01-25] MEDS: FENOFIBRATE NANOCRYSTALLIZED 145MG TABLET PO SCH (09:16)
[2019-01-25] MEDS: LISINOPRIL 10MG TABLET PO SCH (09:16)
[2019-01-25] MEDS: SERTRALINE HCL 100MG TABLET PO SCH (09:16)
[2019-01-25] MEDS: ASPIRIN 81MG TABLET PO SCH (09:16)
[2019-01-25] MEDS: CLOPIDOGREL 75MG TABLET PO SCH (09:16)
[2019-01-25] MEDS: GABAPENTIN 400MG CAPSULE PO SCH ×2 (09:16→17:59)
[2019-01-25] MEDS: HYDROCODONE/ACETAMINOPHEN 10/325MG TABLET PO PRN (12:10)
== END 2019-01-25 21:00 | disposition home or self-care (01) | DRG 198 ==
LOC: ER 16:47 → EDBEDREQ 20:16 → 8WST 20:25 → EDBEDREQ 20:28 → EDBEDREQTM 20:28 → ENRESERV 22:40 → 8WST 01-22 01:46
PROVIDERS: ADMIT Internal Medicine; ATTEND Internal Medicine
DX: R07.89 Other chest pain (principal); I25.10 Atherosclerotic heart disease of native coronary artery without angina pectoris; M48.02 Spinal stenosis, cervical region; E78.00 Pure hypercholesterolemia, unspecified; I10 Essential (primary) hypertension; M48.061 Spinal stenosis, lumbar region without neurogenic claudication; G89.29 Other chronic pain; H33.20 Serous retinal detachment, unspecified eye; E11.9 Type 2 diabetes mellitus without complications; M50.80 Other cervical disc disorders, unspecified cervical region; M51.86 Other intervertebral disc disorders, lumbar region; E78.5 Hyperlipidemia, unspecified; Z91.19 Patient's noncompliance with other medical treatment and regimen; Z86.73 Personal history of transient ischemic attack (TIA), and cerebral infarction without residual deficits; Z90.49 Acquired absence of other specified parts of digestive tract; Z95.5 Presence of coronary angioplasty implant and graft; Z88.0 Allergy status to penicillin; Z79.899 Other long term (current) drug therapy
CPT/HCPCS: 36415; 70544; 70553; 71045; 72100; 73560; 80305; 80320; 82553; 82962; 83880; 84484; 93005; 93306; 93880; 97110; 97162; 97166; 97530; 99285; J1815; J2270; J2405; G0480

== ENCOUNTER 2019-02-11 20:24 | Inpatient (IN) | payer MEDICAID ==
[~2019-02-11] VITALS: Ht 154.9 cm; Wt 112.0 kg
[2019-02-12] MEDS ORDERED: KETOROLAC 30MG/ML VIAL IV STA (01:12)
[2019-02-12] MEDS ORDERED: ASPIRIN 81MG TABLET PO ONE (01:15)
[2019-02-12] MEDS: NITROGLYCERIN 0.4MG TABLET SL SL PRN ×2 (01:36→02:15)
[2019-02-12 02:09] LABS: EOSINOPHILS % 2.5 % (0.0-5.0); HEMATOCRIT. 41.4 % (42.0-52.0); HEMOGLOBIN. 13.5 g/dL (14.0-18.0); LYMPHOCYTES % 23.7 % (20.0-50.0); MEAN CORPUSCULAR HEMOGLOBIN 30.3 pg (28.0-32.0); MEAN CORPUSCULAR VOLUME 92.7 fL (80.0-94.0); MEAN PLATELET VOLUME 7.7 fl (7.4-10.4); MONOCYTES % 7.1 % (2.0-8.0); NEUTROPHILS % 65.7 % (40.0-76.0); PLATELET 411 x1000/uL (130-400); RED BLOOD CELL COUNT 4.46 mill/uL (4.7-6.1); RED CELL DISTRIBUTION WIDTH 13.5 % (11.6-14.6)
[2019-02-12 02:15] LABS: CHLORIDE 100 mEq/L (98-107)
[2019-02-12 03:00] LABS: PARTIAL THROMBOPLASTIN TIME 30.9 sec (23.4-31.0); PROTHROMBIN TIME 10.7 sec (9.6-11.0)
[2019-02-12] MEDS ORDERED: MORPHINE SULFATE 4 MG/ML CPJ (NOT FOR IM USE) IV NR (03:45)
[2019-02-12 06:48] VITALS: BP 120/77
[2019-02-12 08:54] VITALS: BP 112/81
[2019-02-12] MEDS ORDERED: DEXTROSE 50% WATER 50ML SYRINGE IV PRN (09:45)
[2019-02-12] MEDS ORDERED: LEVE1000 PO (10:24)
[2019-02-12] MEDS ORDERED: AMLO2.5T2 PO (10:24)
[2019-02-12] MEDS ORDERED: TRAZ150T78 PO (10:24)
[2019-02-12] MEDS ORDERED: MIDO10TA PO (10:25)
[2019-02-12] MEDS ORDERED: BACL-141 PO (10:28)
[2019-02-12] MEDS ORDERED: MECL-115 PO (10:28)
[2019-02-12] MEDS ORDERED: METH500T6 PO (10:33)
[2019-02-12] MEDS ORDERED: GABA300S PO (10:37)
[2019-02-12] MEDS ORDERED: ACETAMINOPHEN PO PRN (10:45)
[2019-02-12] MEDS ORDERED: AMLODIPINE BESYLATE 2.5 MG PO SCH (10:45)
[2019-02-12] MEDS ORDERED: MEDICATION NOT ON FORMULARY EA (Pantoprazole Sodium (Protonix) 40 MG) PO SCH (10:45)
[2019-02-12] MEDS ORDERED: HYDROCODONE PO PRN (10:45)
[2019-02-12] MEDS ORDERED: IBUPROFEN 600 MG PO PRN (10:45)
[2019-02-12] MEDS ORDERED: LORATADINE 10MG TABLET PO SCH (11:30)
[2019-02-12] MEDS ORDERED: IBUPROFEN 600MG TABLET PO PRN (11:45)
[2019-02-12] MEDS: CLOPIDOGREL 75MG TABLET PO SCH (11:45)
[2019-02-12] MEDS: ASPIRIN 81MG EC TABLET PO SCH (11:45)
[2019-02-12] MEDS: BLOOD SUGAR DIAGNOSTIC STRIP TEST SCH ×3 (11:46→20:41)
[2019-02-12] MEDS: INSULIN LISPRO 100 UNITS/ML SUBCUT SCH ×3 (11:46→20:41)
[2019-02-12] MEDS: MECLIZINE 25MG TABLET PO SCH ×2 (12:30→17:12)
[2019-02-12] MEDS: PANTOPRAZOLE 40MG DR TABLET PO SCH (12:30)
[2019-02-12] MEDS: AMLODIPINE 2.5MG TABLET PO SCH (12:31)
[2019-02-12] MEDS: MIDODRINE HCL 5MG TABLET PO SCH ×2 (12:32→17:12)
[2019-02-12 12:35] VITALS: BP 117/74
[2019-02-12] MEDS ORDERED: MECLIZINE HCL 25 MG PO SCH (13:00)
[2019-02-12] MEDS ORDERED: MEDICATION NOT ON FORMULARY EA (Midodrine Hcl 10 MG) PO SCH (13:00)
[2019-02-12] MEDS: METHOCARBAMOL 500MG TABLET PO SCH ×2 (13:37→17:12)
[2019-02-12] MEDS: HYDROCODONE/ACETAMINOPHEN 5/325MG TABLET PO PRN ×3 (13:38→23:27)
[2019-02-12 16:10] VITALS: BP 114/66
[2019-02-12] MEDS ORDERED: MEDICATION NOT ON FORMULARY EA (Gabapentin 1,200 MG) PO SCH (17:00)
[2019-02-12] MEDS ORDERED: LEVETIRACETAM PO SCH (17:00)
[2019-02-12] MEDS: FENOFIBRATE NANOCRYSTALLIZED 145MG TABLET PO SCH (17:11)
[2019-02-12] MEDS: GABAPENTIN 400MG CAPSULE PO SCH (17:13)
[2019-02-12] MEDS: LEVETIRACETAM 500MG TABLET PO SCH (17:13)
[2019-02-12 17:59] LABS: CREATINE KINASE 197 IU/L (39-308)
[2019-02-12 18:00] LABS: CREATINE KINASE MB FRACTION 2.1 ng/mL (0.5-3.6)
[2019-02-12 20:24] VITALS: BP 104/64
[2019-02-12] MEDS: LORATADINE 10MG TABLET PO SCH (20:42)
[2019-02-12] MEDS: ATORVASTATIN CALCIUM 40MG TABLET PO SCH (20:42)
[2019-02-12] MEDS: TRAZODONE HCL 50MG TABLET PO SCH (20:42)
[2019-02-12] MEDS: ENOXAPARIN 30MG/0.3ML SYR SUBCUT SCH (20:43)
[2019-02-12] MEDS ORDERED: MEDICATION NOT ON FORMULARY EA (Trazodone Hcl 150 MG) PO SCH (21:00)
[2019-02-13] VITALS (8 sets, daily range): BP systolic 96–125; BP diastolic 53–76
[2019-02-13 00:05] LABS: CREATINE KINASE 153 IU/L (39-308)
[2019-02-13 00:06] LABS: CREATINE KINASE MB FRACTION 1.8 ng/mL (0.5-3.6)
[2019-02-13] MEDS: HYDROCODONE/ACETAMINOPHEN 5/325MG TABLET PO PRN (05:23)
[2019-02-13] MEDS: PANTOPRAZOLE 40MG DR TABLET PO SCH (06:28)
[2019-02-13] MEDS: BLOOD SUGAR DIAGNOSTIC STRIP TEST SCH ×4 (07:24→21:06)
[2019-02-13] MEDS: AMLODIPINE 2.5MG TABLET PO SCH (09:00)
[2019-02-13] MEDS ORDERED: FLUTICASONE FUROATE 100 1 INH/CAP ORI SCH (09:00)
[2019-02-13] MEDS: LEVETIRACETAM 500MG TABLET PO SCH ×2 (09:03→17:18)
[2019-02-13] MEDS: FENOFIBRATE NANOCRYSTALLIZED 145MG TABLET PO SCH (09:04)
[2019-02-13] MEDS: GABAPENTIN 400MG CAPSULE PO SCH ×2 (09:05→17:23)
[2019-02-13] MEDS: METHOCARBAMOL 500MG TABLET PO SCH ×3 (09:05→17:18)
[2019-02-13] MEDS: ASPIRIN 81MG EC TABLET PO SCH (09:06)
[2019-02-13] MEDS: CLOPIDOGREL 75MG TABLET PO SCH (09:06)
[2019-02-13] MEDS: MECLIZINE 25MG TABLET PO SCH ×3 (09:06→17:18)
[2019-02-13] MEDS: MIDODRINE HCL 5MG TABLET PO SCH ×5 (09:06→17:18)
[2019-02-13] MEDS: ENOXAPARIN 30MG/0.3ML SYR SUBCUT SCH ×2 (09:07→21:06)
[2019-02-13] MEDS: INSULIN LISPRO 100 UNITS/ML SUBCUT SCH ×4 (09:09→21:50)
[2019-02-13 09:38] LABS: HEMATOCRIT 37.9 % (42.0-52.0); HEMOGLOBIN 12.6 g/dL (14.0-18.0); MEAN CORPUSCULAR HEMOGLOBIN 30.5 pg (28.0-32.0); PLATELET 385 x1000/uL (130-400); RED BLOOD CELL COUNT 4.12 mill/uL (4.7-6.1); RED CELL DISTRIBUTION WIDTH 13.5 % (11.6-14.6)
[2019-02-13 09:58] LABS: CHLORIDE 104 mEq/L (98-107)
[2019-02-13 10:08] LABS: CREATINE KINASE 96 IU/L (39-308)
[2019-02-13] MEDS ORDERED: REGADENOSON 0.4 MG/5 ML IV ONE (10:45)
[2019-02-13] MEDS: LORATADINE 10MG TABLET PO SCH (21:05)
[2019-02-13] MEDS: TRAZODONE HCL 50MG TABLET PO SCH (21:05)
[2019-02-13] MEDS: ATORVASTATIN CALCIUM 40MG TABLET PO SCH (21:05)
[2019-02-14 04:00] VITALS: BP 109/64
[2019-02-14] MEDS: INSULIN LISPRO 100 UNITS/ML SUBCUT SCH ×3 (07:00→17:14)
[2019-02-14] MEDS: BLOOD SUGAR DIAGNOSTIC STRIP TEST SCH ×2 (07:00→17:02)
[2019-02-14] MEDS: PANTOPRAZOLE 40MG DR TABLET PO SCH (07:00)
[2019-02-14 08:00] VITALS: BP 104/62
[2019-02-14] MEDS: ASPIRIN 81MG EC TABLET PO SCH (09:00)
[2019-02-14] MEDS: CLOPIDOGREL 75MG TABLET PO SCH (09:00)
[2019-02-14] MEDS: LEVETIRACETAM 500MG TABLET PO SCH ×2 (09:00→17:12)
[2019-02-14] MEDS: FENOFIBRATE NANOCRYSTALLIZED 145MG TABLET PO SCH (09:00)
[2019-02-14] MEDS: GABAPENTIN 400MG CAPSULE PO SCH ×2 (09:00→17:17)
[2019-02-14] MEDS: AMLODIPINE 2.5MG TABLET PO SCH (09:00)
[2019-02-14] MEDS: ENOXAPARIN 30MG/0.3ML SYR SUBCUT SCH (09:00)
[2019-02-14] MEDS ORDERED: REGADENOSON 0.4 MG/5 ML IV ONE (09:58)
[2019-02-14] MEDS ORDERED: NITROGLYCERIN 0.4MG TABLET SL SL ONE (10:34)
[2019-02-14] MEDS ORDERED: IOHEXOL-300 100 ML BOTTLE ONE (11:04)
[2019-02-14] MEDS ORDERED: LIDOCAINE HCL 1% 20ML VIAL (Pyxis) INJ ONE (11:05)
[2019-02-14] MEDS ORDERED: IODIXANOL 320MG/ML 100 ML BOTTLE IV ONE (11:05)
[2019-02-14] MEDS ORDERED: FENTANYL CITRATE/PF 50MCG/ML 2ML VIAL ONE (11:15)
[2019-02-14] MEDS ORDERED: MIDAZOLAM HCL 2 MG/2 ML VIAL ONE (11:15)
[2019-02-14] MEDS ORDERED: ACETAMINOPHEN 325MG TABLET PO PRN ×2 (11:45)
[2019-02-14] MEDS ORDERED: ATROPINE SULFATE 1MG/10ML SYR IV PRN ×2 (11:45)
[2019-02-14] MEDS: MECLIZINE 25MG TABLET PO SCH (13:00)
[2019-02-14] MEDS: MIDODRINE HCL 5MG TABLET PO SCH ×2 (13:00→17:12)
[2019-02-14] MEDS: METHOCARBAMOL 500MG TABLET PO SCH (13:00)
[2019-02-14 14:00] VITALS: BP 136/49
[2019-02-14 15:59] VITALS: BP 136/49
[2019-02-14 16:00] VITALS: BP 124/82
[2019-02-14 17:13] VITALS: BP 136/49
[2019-02-14] MEDS: HYDROCODONE/ACETAMINOPHEN 5/325MG TABLET PO PRN (17:13)
== END 2019-02-14 19:03 | disposition home or self-care (01) | DRG 192 ==
LOC: ER 20:24 → 6WST 02-12 03:31 → ENRESERV 02-12 04:49 → 3WST 02-14 12:05
PROVIDERS: ADMIT Internal Medicine; ATTEND Internal Medicine
PROC: 4A023N7 Measurement of Cardiac Sampling and Pressure, Left Heart, Percutaneous Approach (ICD-10-PCS; principal; 2019-02-14)
PROC: B2111ZZ Fluoroscopy of Multiple Coronary Arteries using Low Osmolar Contrast (ICD-10-PCS; 2019-02-14)
PROC: B2151ZZ Fluoroscopy of Left Heart using Low Osmolar Contrast (ICD-10-PCS; 2019-02-14)
DX: R07.89 Other chest pain (principal); M48.02 Spinal stenosis, cervical region; I48.91 Unspecified atrial fibrillation; E11.9 Type 2 diabetes mellitus without complications; I25.10 Atherosclerotic heart disease of native coronary artery without angina pectoris; M48.061 Spinal stenosis, lumbar region without neurogenic claudication; J44.9 Chronic obstructive pulmonary disease, unspecified; I10 Essential (primary) hypertension; K21.9 Gastro-esophageal reflux disease without esophagitis; H40.9 Unspecified glaucoma; E78.00 Pure hypercholesterolemia, unspecified; G89.4 Chronic pain syndrome; F32.9 Major depressive disorder, single episode, unspecified; M50.90 Cervical disc disorder, unspecified, unspecified cervical region; F41.9 Anxiety disorder, unspecified; E78.2 Mixed hyperlipidemia; M19.90 Unspecified osteoarthritis, unspecified site; I25.2 Old myocardial infarction; Z59.0 Homelessness; Z76.5 Malingerer [conscious simulation]; Z86.73 Personal history of transient ischemic attack (TIA), and cerebral infarction without residual deficits; Z90.49 Acquired absence of other specified parts of digestive tract; Z95.5 Presence of coronary angioplasty implant and graft; Z88.0 Allergy status to penicillin; Z79.82 Long term (current) use of aspirin; Z79.899 Other long term (current) drug therapy
CPT/HCPCS: 36415; 71045; 78452; 80048; 82550; 82553; 82962; 83880; 84484; 85027; 93005; 93017; 93458; 96374; 96375; 99285; A9500; C1769; C1887; C1893; J1644; J1650; J1815; J1885; J2250; J2270; J2785; J3010; J3490; J8597; Q9967

== ENCOUNTER 2019-05-02 19:18 | Inpatient (IN) | payer MEDICAID ==
[~2019-05-02] VITALS: Ht 177.8 cm; Wt 103.9 kg
[~2019-05-02 19:18] MED LIST changes: +AMLO2.5T2 PO; +BACL-141 PO; -GABA-290 PO; +GABA300S PO; +LEVE1000 PO; -LISI10TA5 PO; +MECL-115 PO; +METH500T6 PO; -METO25TA6 PO; +MIDO10TA PO; -SERT50TA PO; -TRAZ-213 PO; +TRAZ150T78 PO
[2019-05-02 21:50] LABS: BASOPHILS % 0.9 % (0.0-2.0); EOSINOPHILS % 2.8 % (0.0-5.0); HEMATOCRIT. 40.7 % (42.0-52.0); HEMOGLOBIN. 13.5 g/dL (14.0-18.0); LYMPHOCYTES % 24.2 % (20.0-50.0); MEAN CORPUSCULAR HEMOGLOBIN 30.4 pg (28.0-32.0); MEAN CORPUSCULAR VOLUME 91.4 fL (80.0-94.0); MEAN PLATELET VOLUME 7.5 fl (7.4-10.4); MONOCYTES % 6.6 % (2.0-8.0); NEUTROPHILS % 65.5 % (40.0-76.0); PLATELET 413 x1000/uL (130-400); RED BLOOD CELL COUNT 4.45 mill/uL (4.7-6.1); RED CELL DISTRIBUTION WIDTH 13.2 % (11.6-14.6)
[2019-05-02 21:56] LABS: CHLORIDE 102 mEq/L (98-107); PROTHROMBIN TIME 10.3 sec (9.6-11.0)
[2019-05-02] MEDS ORDERED: ASPIRIN 81MG TABLET PO ONE (23:00)
[2019-05-03 04:00] VITALS: BP 158/89
[2019-05-03] MEDS ORDERED: ONDANSETRON HCL 4MG/2ML INJ IV PRN (05:00)
[2019-05-03] MEDS ORDERED: IPRATROPIUM/ALBUTEROL 0.5-3(2.5)MG/3ML NEB NEB PRN (05:00)
[2019-05-03] MEDS ORDERED: ENOXAPARIN 40MG/0.4ML SYR SUBCUT SCH (05:00)
[2019-05-03] MEDS ORDERED: ACETAMINOPHEN 325MG TABLET PO PRN (05:00)
[2019-05-03] MEDS ORDERED: DOCUSATE SODIUM 100MG CAPSULE PO PRN (05:00)
[2019-05-03] MEDS ORDERED: GUAIFENESIN 200MG/10ML SUGAR FREE UDC PO PRN (05:00)
[2019-05-03] MEDS ORDERED: HYDROCODONE/ACETAMINOPHEN 5/325MG TABLET PO PRN (05:00)
[2019-05-03] MEDS ORDERED: MAGNESIUM/ALUMINUM HYDROXIDE/SIMETHICONE 30ML UDC PO PRN (05:00)
[2019-05-03] MEDS ORDERED: LORAZEPAM 2MG/ML CPJ IV PRN (05:00)
[2019-05-03] MEDS ORDERED: CLONIDINE 0.1MG TABLET PO PRN (05:00)
[2019-05-03] MEDS ORDERED: PRED12O EACHEYE (05:05)
[2019-05-03] MEDS ORDERED: OMEG-31 MT (05:05)
[2019-05-03] MEDS ORDERED: OMEP20TA15 PO (05:05)
[2019-05-03] MEDS ORDERED: DIAZ10TA4 MT (05:05)
[2019-05-03] MEDS ORDERED: FLAX100020 PO (05:05)
[2019-05-03] MEDS ORDERED: ALBU18HF2 IH (05:05)
[2019-05-03] MEDS ORDERED: DULO60CA44 PO (05:05)
[2019-05-03] MEDS ORDERED: FERR325T6 MT (05:05)
[2019-05-03] MEDS ORDERED: GARL500C PO (05:05)
[2019-05-03] MEDS ORDERED: FURO-151 MT (05:05)
[2019-05-03] MEDS ORDERED: NITR0.4T49 SL (05:05)
[2019-05-03] MEDS ORDERED: DEXTROSE 50% WATER 50ML SYRINGE IV PRN (05:15)
[2019-05-03] MEDS: BLOOD SUGAR DIAGNOSTIC STRIP TEST SCH ×4 (06:11→20:38)
[2019-05-03] MEDS: INSULIN LISPRO 100 UNITS/ML SUBCUT SCH ×4 (06:27→20:46)
[2019-05-03] MEDS: MORPHINE SULFATE 2 MG/ML CPJ (NOT FOR IM USE) IV PRN ×4 (06:29→21:38)
[2019-05-03] MEDS ORDERED: INFLUENZA VIRUS VACCINE(AFLURIA) 0.5ML SYR IM ONE (07:00)
[2019-05-03 08:00] VITALS: BP 141/84
[2019-05-03] MEDS ORDERED: AMLODIPINE 10MG TABLET PO SCH (09:00)
[2019-05-03] MEDS: CLOPIDOGREL 75MG TABLET PO SCH (09:19)
[2019-05-03] MEDS: ASPIRIN 81MG EC TABLET PO SCH (09:20)
[2019-05-03] MEDS: ENOXAPARIN 30MG/0.3ML SYR SUBCUT SCH ×2 (09:20→20:40)
[2019-05-03 12:00] VITALS: BP 134/76
[2019-05-03 16:00] VITALS: BP 129/65
[2019-05-03 20:00] VITALS: BP 115/74
[2019-05-03] MEDS ORDERED: ATORVASTATIN CALCIUM 20MG TABLET PO SCH (21:00)
[2019-05-04] VITALS: BP 116/58
[2019-05-04 04:00] VITALS: BP 105/64
[2019-05-04] MEDS: BLOOD SUGAR DIAGNOSTIC STRIP TEST SCH ×2 (06:26→12:34)
[2019-05-04] MEDS: INSULIN LISPRO 100 UNITS/ML SUBCUT SCH ×2 (06:29→12:50)
[2019-05-04 07:31] LABS: BASOPHILS % 0.9 % (0.0-2.0); EOSINOPHILS % 6.4 % (0.0-5.0); HEMATOCRIT. 40.5 % (42.0-52.0); HEMOGLOBIN. 13.5 g/dL (14.0-18.0); LYMPHOCYTES % 34.2 % (20.0-50.0); MEAN CORPUSCULAR HEMOGLOBIN 30.2 pg (28.0-32.0); MEAN CORPUSCULAR VOLUME 90.8 fL (80.0-94.0); MEAN PLATELET VOLUME 7.5 fl (7.4-10.4); MONOCYTES % 8.8 % (2.0-8.0); NEUTROPHILS % 49.7 % (40.0-76.0); PLATELET 356 x1000/uL (130-400); RED BLOOD CELL COUNT 4.46 mill/uL (4.7-6.1); RED CELL DISTRIBUTION WIDTH 13.1 % (11.6-14.6)
[2019-05-04 08:00] VITALS: BP 135/83
[2019-05-04 08:13] LABS: CHLORIDE 103 mEq/L (98-107)
[2019-05-04 08:21] LABS: LDL CHOLESTEROL 144 mg/dL (5-100)
[2019-05-04 08:22] LABS: HDL CHOLESTEROL 37 mg/dL (40-59)
[2019-05-04] MEDS ORDERED: AMLODIPINE 2.5MG TABLET PO SCH (09:00)
[2019-05-04] MEDS: ASPIRIN 81MG EC TABLET PO SCH (09:05)
[2019-05-04] MEDS: CLOPIDOGREL 75MG TABLET PO SCH (09:06)
[2019-05-04] MEDS: ENOXAPARIN 30MG/0.3ML SYR SUBCUT SCH (09:07)
[2019-05-04] MEDS: MORPHINE SULFATE 2 MG/ML CPJ (NOT FOR IM USE) IV PRN (09:17)
[2019-05-04 12:00] VITALS: BP 118/75
[2019-05-04] MEDS ORDERED: BUTALBITAL/ACETAMINOPHEN/CAFFEINE 50/325/40MG TABLET PO PRN (12:45)
[2019-05-04 13:45] VITALS: BP 118/75
[2019-05-04] MEDS ORDERED: ATORVASTATIN CALCIUM 40MG TABLET PO SCH (21:00)
== END 2019-05-04 15:01 | disposition home or self-care (01) | DRG 203 ==
LOC: ER 19:18 → 5WST 23:07 → ENRESERV 05-03 02:26
PROVIDERS: ADMIT Hospitalist; ATTEND Hospitalist
DX: M94.0 Chondrocostal junction syndrome [Tietze] (principal); R56.9 Unspecified convulsions; I69.354 Hemiplegia and hemiparesis following cerebral infarction affecting left non-dominant side; I25.10 Atherosclerotic heart disease of native coronary artery without angina pectoris; I48.91 Unspecified atrial fibrillation; E11.9 Type 2 diabetes mellitus without complications; J44.9 Chronic obstructive pulmonary disease, unspecified; K21.9 Gastro-esophageal reflux disease without esophagitis; E78.5 Hyperlipidemia, unspecified; H40.9 Unspecified glaucoma; I10 Essential (primary) hypertension; E78.00 Pure hypercholesterolemia, unspecified; F32.9 Major depressive disorder, single episode, unspecified; F41.9 Anxiety disorder, unspecified; M19.90 Unspecified osteoarthritis, unspecified site; Z88.0 Allergy status to penicillin; Z95.5 Presence of coronary angioplasty implant and graft; Z79.82 Long term (current) use of aspirin; Z90.49 Acquired absence of other specified parts of digestive tract; Z79.899 Other long term (current) drug therapy
CPT/HCPCS: 36415; 71045; 80061; 82962; 83880; 84484; 90686; 93005; 93306; 93970; 99285; C1893; J1650; J1815; J2270

== ENCOUNTER 2019-06-30 15:51 | Emergency (ER) | payer MEDICAID ==
[~2019-06-30] VITALS: Ht 177.8 cm; Wt 104.0 kg
[~2019-06-30 15:51] MED LIST changes: +ALBU18HF2 IH; -CLAR10 PO; -CLOP75TA4 PO; +DIAZ10TA4 MT; +DULO60CA44 PO; +FERR325T6 MT; +FLAX100020 PO; +FURO-151 MT; +GARL500C PO; -IBUP-2029 PO; +NITR0.4T49 SL; +OMEG-31 MT; +OMEP20TA15 PO; +PRED12O EACHEYE; -PROT40 PO
[2019-06-30 23:06] LABS: HEMATOCRIT. 39.9 % (42.0-52.0); HEMOGLOBIN. 13.2 g/dL (14.0-18.0); LYMPHOCYTES % 38.7 % (20.0-50.0); MEAN CORPUSCULAR HEMOGLOBIN 29.5 pg (28.0-32.0); MEAN PLATELET VOLUME 7.2 fl (7.4-10.4); MONOCYTES % 8.9 % (2.0-8.0); NEUTROPHILS % 46.4 % (40.0-76.0); PLATELET 342 x1000/uL (130-400); RED BLOOD CELL COUNT 4.48 mill/uL (4.7-6.1); RED CELL DISTRIBUTION WIDTH 13.4 % (11.6-14.6)
[2019-06-30] MEDS: KETOROLAC 60MG/2ML VIAL IM STA (23:08)
[2019-06-30 23:13] LABS: CHLORIDE 101 mEq/L (98-107)
[2019-07-01 01:02] VITALS: BP 152/76
== END 2019-07-01 01:04 | disposition home or self-care (01) ==
LOC: ER 15:51
DX: G89.29 Other chronic pain (principal); R07.89 Other chest pain; R51 Headache; R42 Dizziness and giddiness; E11.9 Type 2 diabetes mellitus without complications; I10 Essential (primary) hypertension; I95.9 Hypotension, unspecified; Z86.73 Personal history of transient ischemic attack (TIA), and cerebral infarction without residual deficits; Z90.49 Acquired absence of other specified parts of digestive tract; F12.10 Cannabis abuse, uncomplicated; Z79.82 Long term (current) use of aspirin; Z79.899 Other long term (current) drug therapy; Z88.0 Allergy status to penicillin
CPT/HCPCS: 36415; 80053; 84484; 85025; 93005; 96372; 99284; J1885; Z7610

== ENCOUNTER 2020-03-11 16:08 | Inpatient (IN) | payer MEDICAID ==
[~2020-03-11] VITALS: Ht 177.8 cm; Wt 115.2 kg
[~2020-03-11 16:08] MED LIST changes: -GARL500C PO; +GARL500C11 PO
[2020-03-11] MEDS ORDERED: MORPHINE SULFATE 4 MG/ML CPJ (NOT FOR IM USE) IV STA (16:40)
[2020-03-11] MEDS ORDERED: ONDANSETRON HCL 4MG/2ML INJ IV STA (16:43)
[2020-03-11] MEDS ORDERED: ASPIRIN 81MG TABLET PO ONE (16:45)
[2020-03-11] MEDS: NITROGLYCERIN 0.4MG TABLET SL SL PRN ×3 (17:54→18:04)
[2020-03-11 18:04] LABS: BASOPHILS % 1.1 % (0.0-2.0); EOSINOPHILS % 2.8 % (0.0-5.0); HEMATOCRIT. 42.6 % (42.0-52.0); HEMOGLOBIN. 14.1 g/dL (14.0-18.0); LYMPHOCYTES % 24.7 % (20.0-50.0); MEAN CORPUSCULAR HEMOGLOBIN 29.9 pg (28.0-32.0); MEAN CORPUSCULAR VOLUME 90.5 fL (80.0-94.0); NEUTROPHILS % 64.4 % (40.0-76.0); PLATELET 336 x1000/uL (130-400); RED BLOOD CELL COUNT 4.71 mill/uL (4.7-6.1); RED CELL DISTRIBUTION WIDTH 14.1 % (11.6-14.6)
[2020-03-11 18:13] LABS: CHLORIDE 105 mEq/L (98-107)
[2020-03-11 18:18] LABS: D-DIMER 0.19 mg/L FEU (<0.50); PARTIAL THROMBOPLASTIN TIME 26.1 sec (23.4-31.0); PROTHROMBIN TIME 10.3 sec (9.6-11.0)
[2020-03-11] MEDS ORDERED: ACETAMINOPHEN 325MG TABLET PO STA (18:50)
[2020-03-11] MEDS ORDERED: ASPIRIN 81MG TABLET PO NR (19:30)
[2020-03-11] MEDS ORDERED: ACETAMINOPHEN 325MG TABLET PO PRN (19:45)
[2020-03-11] MEDS ORDERED: KETOROLAC 30MG/ML VIAL IV STA (20:21)
[2020-03-12] VITALS (9 sets, daily range): BP systolic 102–149; BP diastolic 62–99
[2020-03-12] MEDS ORDERED: METHOCARBAMOL 500MG TABLET PO PRN (05:30)
[2020-03-12] MEDS ORDERED: NITROGLYCERIN 0.4MG TABLET SL SL PRN (05:30)
[2020-03-12] MEDS ORDERED: TRAZODONE HCL 50MG TABLET PO PRN (05:30)
[2020-03-12] MEDS ORDERED: DEXTROSE 50% WATER 50ML SYRINGE IV PRN ×2 (05:30)
[2020-03-12] MEDS ORDERED: DIAZEPAM 5 MG TABLET PO PRN (05:30)
[2020-03-12] MEDS: BLOOD SUGAR DIAGNOSTIC STRIP TEST SCH ×4 (06:09→21:00)
[2020-03-12] MEDS: INSULIN LISPRO 100 UNITS/ML SUBCUT SCH ×4 (06:32→21:32)
[2020-03-12] MEDS: HYDROCODONE/ACETAMINOPHEN 5/325MG TABLET PO PRN ×2 (06:33→15:03)
[2020-03-12] MEDS: GABAPENTIN 400MG CAPSULE PO SCH ×3 (06:34→21:32)
[2020-03-12] MEDS: FERROUS SULFATE 325MG TABLET PO SCH ×3 (06:34→17:27)
[2020-03-12] MEDS: OMEPRAZOLE 20MG CAPSULE EXTENDED RELEASE PO SCH (06:34)
[2020-03-12] MEDS ORDERED: MIDODRINE HCL 5MG TABLET PO SCH (09:00)
[2020-03-12] MEDS: LEVETIRACETAM 500MG TABLET PO SCH ×2 (09:02→21:33)
[2020-03-12] MEDS: ASPIRIN 81MG TABLET PO SCH (09:02)
[2020-03-12] MEDS: FENOFIBRATE NANOCRYSTALLIZED 145MG TABLET PO SCH (09:03)
[2020-03-12] MEDS: FUROSEMIDE 40MG TABLET PO SCH (09:03)
[2020-03-12] MEDS: AMLODIPINE 2.5MG TABLET PO SCH (09:03)
[2020-03-12 14:40] LABS: CREATINE KINASE 140 IU/L (39-308)
[2020-03-12 14:42] LABS: CREATINE KINASE MB FRACTION 1.2 ng/mL (0.5-3.6)
[2020-03-12] MEDS ORDERED: ATORVASTATIN CALCIUM 40MG TABLET PO SCH (21:00)
[2020-03-12] MEDS: MECLIZINE 25MG TABLET PO PRN (21:49)
[2020-03-12 23:30] LABS: ETHANOL BLOOD < 10 mg/dL
[2020-03-12 23:35] LABS: CREATINE KINASE 117 IU/L (39-308)
[2020-03-12 23:36] LABS: CREATINE KINASE MB FRACTION < 1.0 ng/mL (0.5-3.6)
[2020-03-13] VITALS (13 sets, daily range): BP systolic 94–145; BP diastolic 45–78
[2020-03-13 03:29] LABS: *AMPHETAMINES SCREEN URINE NEGATIVE (NEGATIVE); *BARBITURATES SCREEN URINE NEGATIVE (NEGATIVE); *BENZODIAZEPINES SCREEN URINE NEGATIVE (NEGATIVE); *COCAINE SCREEN URINE NEGATIVE (NEGATIVE)
[2020-03-13 03:30] LABS: CANNABINOID URINE SCREEN NEGATIVE (NEGATIVE); METHADONE URINE SCREEN NEGATIVE (NEGATIVE); OPIATES URINE SCREEN PRESUMTIVE POSITIVE (NEGATIVE); PHENCYCLIDINE URINE SCREEN NEGATIVE (NEGATIVE)
[2020-03-13] MEDS: BLOOD SUGAR DIAGNOSTIC STRIP TEST SCH ×3 (06:18→16:50)
[2020-03-13] MEDS: GABAPENTIN 400MG CAPSULE PO SCH ×2 (06:24→14:22)
[2020-03-13] MEDS: OMEPRAZOLE 20MG CAPSULE EXTENDED RELEASE PO SCH (06:24)
[2020-03-13] MEDS: FERROUS SULFATE 325MG TABLET PO SCH ×3 (07:37→17:40)
[2020-03-13] MEDS: HYDROCODONE/ACETAMINOPHEN 5/325MG TABLET PO PRN ×2 (07:38→15:51)
[2020-03-13] MEDS: INSULIN LISPRO 100 UNITS/ML SUBCUT SCH ×3 (07:40→17:41)
[2020-03-13] MEDS: FUROSEMIDE 40MG TABLET PO SCH (09:46)
[2020-03-13] MEDS: ASPIRIN 81MG TABLET PO SCH (09:46)
[2020-03-13] MEDS: LEVETIRACETAM 500MG TABLET PO SCH (09:47)
[2020-03-13] MEDS: FENOFIBRATE NANOCRYSTALLIZED 145MG TABLET PO SCH (09:47)
[2020-03-13] MEDS: AMLODIPINE 2.5MG TABLET PO SCH (09:47)
[2020-03-13] MEDS: MECLIZINE 25MG TABLET PO PRN (12:17)
[2020-03-13] MEDS ORDERED: FAMOTIDINE 20MG TABLET PO SCH (21:00)
== END 2020-03-13 18:30 | disposition home or self-care (01) | DRG 48 ==
LOC: ER 16:08 → EDBEDREQ 19:02 → MICUSO 19:48 → EDBEDREQTM 19:54 → EDBEDREQ 19:54 → 3WST 03-12 02:56
PROVIDERS: ADMIT Internal Medicine; ATTEND Nurse Practitioner Family
DX: G90.8 Other disorders of autonomic nervous system (principal); M94.0 Chondrocostal junction syndrome [Tietze]; I10 Essential (primary) hypertension; E11.40 Type 2 diabetes mellitus with diabetic neuropathy, unspecified; F32.9 Major depressive disorder, single episode, unspecified; F41.9 Anxiety disorder, unspecified; G40.909 Epilepsy, unspecified, not intractable, without status epilepticus; I25.10 Atherosclerotic heart disease of native coronary artery without angina pectoris; E78.5 Hyperlipidemia, unspecified; J44.9 Chronic obstructive pulmonary disease, unspecified; M48.02 Spinal stenosis, cervical region; M48.061 Spinal stenosis, lumbar region without neurogenic claudication; E78.00 Pure hypercholesterolemia, unspecified; I48.91 Unspecified atrial fibrillation; J45.909 Unspecified asthma, uncomplicated; Z88.0 Allergy status to penicillin; Z95.5 Presence of coronary angioplasty implant and graft; I69.354 Hemiplegia and hemiparesis following cerebral infarction affecting left non-dominant side; Z79.51 Long term (current) use of inhaled steroids; Z79.899 Other long term (current) drug therapy
CPT/HCPCS: 36415; 70544; 70553; 71045; 80053; 80305; 80320; 82550; 82553; 82962; 83036; 83880; 84484; 85025; 85379; 93005; 93306; 93880; 96374; 97116; 97162; 97166; 99285; J1815; J1885; J2270; J2405; J8597; G0480

== ENCOUNTER 2021-01-10 18:14 | Emergency (ER) | payer MEDICAID ==
[~2021-01-10] VITALS: Ht 172.7 cm; Wt 88.0 kg
[~2021-01-10 18:14] MED LIST changes: -AMLO2.5T2 PO; +AMLO5TAB4 PO; -FURO-151 MT; +FURO-151 PO; +GABA-290 PO; -GARL500C11 PO; +GARL500C2 PO; -HYDR-523 PO; +INSU100I24 SQ; +KEPP500 PO; +METH-773 PO; -METH500T6 PO; -MIDO10TA PO
[2021-01-10] MEDS ORDERED: NITROGLYCERIN OINT 1GM/INCH UDPKT TD ONE (19:00)
[2021-01-10] MEDS ORDERED: ASPIRIN 81MG TABLET PO ONE (19:00)
[2021-01-10 20:29] LABS: HEMATOCRIT. 35.8 % (42.0-52.0); HEMOGLOBIN. 12.3 g/dL (14.0-18.0); MEAN CORPUSCULAR HEMOGLOBIN 30.1 pg (28.0-32.0); MEAN CORPUSCULAR VOLUME 87.1 fL (80.0-94.0); MEAN PLATELET VOLUME 7.2 fl (7.4-10.4); PLATELET 357 x1000/uL (130-400); RED BLOOD CELL COUNT 4.11 mill/uL (4.7-6.1)
[2021-01-10 20:36] LABS: CHLORIDE 93 mEq/L (98-107)
[2021-01-10 21:03] LABS: PLATELET ESTIMATE NORMAL
[2021-01-10] MEDS ORDERED: MORPHINE SULFATE 4 MG/ML CPJ (NOT FOR IM USE) IV ONE (23:15)
[2021-01-11 01:50] VITALS: BP 102/58
== END 2021-01-11 01:50 | disposition short-term general hospital (02) ==
LOC: ER 18:14
DX: R07.89 Other chest pain (principal); F12.10 Cannabis abuse, uncomplicated; E78.00 Pure hypercholesterolemia, unspecified; I25.2 Old myocardial infarction; I10 Essential (primary) hypertension; Z20.822 Contact with and (suspected) exposure to COVID-19; Z88.0 Allergy status to penicillin; Z86.73 Personal history of transient ischemic attack (TIA), and cerebral infarction without residual deficits; Z90.89 Acquired absence of other organs; Z79.899 Other long term (current) drug therapy
CPT/HCPCS: 36415; 70450; 71045; 80053; 83880; 84484; 85025; 85379; 87426; 93005; 96374; 99285; J2270; Z7610

== ENCOUNTER 2021-01-26 16:29 | Inpatient (IN) | payer MEDICAID ==
[~2021-01-26] VITALS: Ht 177.8 cm; Wt 117.0 kg
[~2021-01-26 16:29] MED LIST changes: -METH-773 PO; +METH500T6 PO
[2021-01-26] MEDS ORDERED: ACETAMINOPHEN 325MG TABLET PO ONE (18:00)
[2021-01-26] MEDS ORDERED: NITROGLYCERIN 0.4MG TABLET SL SL ONE (18:00)
[2021-01-26] MEDS ORDERED: MORPHINE SULFATE 4 MG/ML CPJ (NOT FOR IM USE) IV ONE (18:00)
[2021-01-26] MEDS ORDERED: ONDANSETRON HCL 4MG/2ML INJ IV ONE (18:00)
[2021-01-26 18:01] LABS: BASOPHILS % 1.3 % (0.0-2.0); EOSINOPHILS % 3.7 % (0.0-5.0); HEMATOCRIT. 42.9 % (42.0-52.0); HEMOGLOBIN. 14.3 g/dL (14.0-18.0); LYMPHOCYTES % 30.5 % (20.0-50.0); MEAN CORPUSCULAR HEMOGLOBIN 29.9 pg (28.0-32.0); MEAN CORPUSCULAR VOLUME 89.5 fL (80.0-94.0); MEAN PLATELET VOLUME 7.3 fl (7.4-10.4); MONOCYTES % 8.7 % (2.0-8.0); NEUTROPHILS % 55.8 % (40.0-76.0); PLATELET 328 x1000/uL (130-400)
[2021-01-26 18:09] LABS: CHLORIDE 101 mEq/L (98-107)
[2021-01-26] MEDS ORDERED: CLONIDINE 0.2MG TABLET PO PRN (19:30)
[2021-01-26] MEDS ORDERED: ATORVASTATIN CALCIUM 40MG TABLET PO SCH (21:00)
[2021-01-27 01:00] VITALS: BP 138/92
[2021-01-27] MEDS: NITROGLYCERIN OINT 1GM/INCH UDPKT TD SCH ×4 (01:14→17:32)
[2021-01-27 04:00] VITALS: BP 102/42
[2021-01-27 07:18] LABS: BASOPHILS % 0.8 % (0.0-2.0); EOSINOPHILS % 4.5 % (0.0-5.0); HEMOGLOBIN. 13.1 g/dL (14.0-18.0); LYMPHOCYTES % 28.4 % (20.0-50.0); MEAN CORPUSCULAR HEMOGLOBIN 30.1 pg (28.0-32.0); MEAN CORPUSCULAR VOLUME 89.7 fL (80.0-94.0); MEAN PLATELET VOLUME 7.5 fl (7.4-10.4); MONOCYTES % 8.4 % (2.0-8.0); NEUTROPHILS % 57.9 % (40.0-76.0); PLATELET 300 x1000/uL (130-400); RED BLOOD CELL COUNT 4.34 mill/uL (4.7-6.1); RED CELL DISTRIBUTION WIDTH 13.1 % (11.6-14.6)
[2021-01-27 07:26] LABS: CHLORIDE 103 mEq/L (98-107)
[2021-01-27 07:37] LABS: LDL CHOLESTEROL 126 mg/dL (5-100)
[2021-01-27 07:38] LABS: CREATINE KINASE MB FRACTION < 1.0 ng/mL (0.5-3.6)
[2021-01-27 07:39] LABS: CREATINE KINASE 127 IU/L (39-308); HDL CHOLESTEROL 36 mg/dL (40-59)
[2021-01-27 08:00] VITALS: BP 127/87
[2021-01-27] MEDS ORDERED: ASPIRIN 81MG TABLET PO SCH (09:00)
[2021-01-27 09:03] LABS: *AMPHETAMINES SCREEN URINE NEGATIVE (NEGATIVE); *BARBITURATES SCREEN URINE NEGATIVE (NEGATIVE); *BENZODIAZEPINES SCREEN URINE NEGATIVE (NEGATIVE); *COCAINE SCREEN URINE NEGATIVE (NEGATIVE); METHADONE URINE SCREEN NEGATIVE (NEGATIVE); OPIATES URINE SCREEN PRESUMTIVE POSITIVE (NEGATIVE)
[2021-01-27 09:04] LABS: CANNABINOID URINE SCREEN NEGATIVE (NEGATIVE); PHENCYCLIDINE URINE SCREEN NEGATIVE (NEGATIVE)
[2021-01-27] MEDS: CLOPIDOGREL 75MG TABLET PO SCH (09:36)
[2021-01-27 12:00] VITALS: BP 121/75
[2021-01-27] MEDS ORDERED: DEXTROSE 50% WATER 50ML SYRINGE IV PRN (15:00)
[2021-01-27 16:00] VITALS: BP 132/81
[2021-01-27] MEDS ORDERED: MAGNESIUM 2 G PREMIX 50 ML IV NR (17:00)
[2021-01-27] MEDS: AMLODIPINE 5MG TABLET PO SCH (17:31)
[2021-01-27] MEDS: BLOOD SUGAR DIAGNOSTIC STRIP TEST SCH ×2 (17:36→21:42)
[2021-01-27] MEDS: INSULIN LISPRO 100 UNITS/ML SUBCUT SCH ×2 (17:43→22:43)
[2021-01-27 20:00] VITALS: BP 131/74
[2021-01-27] MEDS ORDERED: MEDICATION NOT ON FORMULARY EA (Atorvastatin Calcium 80 MG) PO SCH (21:00)
[2021-01-27] MEDS: ATORVASTATIN CALCIUM 40MG TABLET PO SCH (21:41)
[2021-01-27] MEDS: LEVETIRACETAM 500MG TABLET PO SCH (21:42)
[2021-01-27] MEDS: INSULIN GLARGINE UD 100 UNITS/ML SYR SUBCUT SCH (22:45)
[2021-01-28] VITALS: BP 139/90
[2021-01-28 04:00] VITALS: BP 126/78
[2021-01-28] MEDS: NITROGLYCERIN OINT 1GM/INCH UDPKT TD SCH ×4 (05:04→17:04)
[2021-01-28] MEDS: BLOOD SUGAR DIAGNOSTIC STRIP TEST SCH ×4 (07:00→20:15)
[2021-01-28] MEDS: INSULIN LISPRO 100 UNITS/ML SUBCUT SCH ×4 (07:04→20:53)
[2021-01-28 07:21] LABS: EOSINOPHILS % 4.6 % (0.0-5.0); HEMOGLOBIN. 12.7 g/dL (14.0-18.0); LYMPHOCYTES % 34.4 % (20.0-50.0); MEAN CORPUSCULAR HEMOGLOBIN 29.8 pg (28.0-32.0); MEAN CORPUSCULAR VOLUME 89.5 fL (80.0-94.0); MEAN PLATELET VOLUME 7.2 fl (7.4-10.4); MONOCYTES % 8.7 % (2.0-8.0); NEUTROPHILS % 51.3 % (40.0-76.0); PLATELET 255 x1000/uL (130-400); RED BLOOD CELL COUNT 4.24 mill/uL (4.7-6.1); RED CELL DISTRIBUTION WIDTH 13.1 % (11.6-14.6)
[2021-01-28 07:48] LABS: CHLORIDE 102 mEq/L (98-107)
[2021-01-28] MEDS ORDERED: HEPARIN SODIUM 1,000 UNIT/1ML VIAL IV ONE (08:22)
[2021-01-28] MEDS ORDERED: NICARDIPINE 100MCG/ML 10ML VIAL (CATH LAB) IV ONE (08:22)
[2021-01-28] MEDS ORDERED: NITROGLYCERIN 50MCG/ML 10ML VIAL (CATH LAB) IV ONE (08:22)
[2021-01-28] MEDS: AMLODIPINE 5MG TABLET PO SCH (09:00)
[2021-01-28] MEDS: FUROSEMIDE 40MG TABLET PO SCH (09:00)
[2021-01-28] MEDS: LEVETIRACETAM 500MG TABLET PO SCH ×2 (09:00→20:15)
[2021-01-28] MEDS: FENOFIBRATE NANOCRYSTALLIZED 145MG TABLET PO SCH (09:00)
[2021-01-28] MEDS: ASPIRIN 81MG EC TABLET PO SCH (09:49)
[2021-01-28] MEDS: CLOPIDOGREL 75MG TABLET PO SCH (09:49)
[2021-01-28] MEDS ORDERED: LIDOCAINE HCL 1% 20ML VIAL (Pyxis) INJ ONE (09:59)
[2021-01-28] MEDS ORDERED: IODIXANOL 320MG/ML 100 ML BOTTLE IV ONE (10:00)
[2021-01-28] MEDS ORDERED: FENTANYL CITRATE/PF 50MCG/ML 2ML VIAL ONE (10:19)
[2021-01-28] MEDS ORDERED: MIDAZOLAM HCL 2 MG/2 ML VIAL ONE (10:20)
[2021-01-28] MEDS ORDERED: ATROPINE SULFATE 1MG/10ML SYR IV PRN (11:00)
[2021-01-28] MEDS ORDERED: ACETAMINOPHEN 325MG TABLET PO PRN (11:00)
[2021-01-28 16:00] VITALS: BP 113/73
[2021-01-28 20:00] VITALS: BP 117/73
[2021-01-28] MEDS: ATORVASTATIN CALCIUM 40MG TABLET PO SCH (20:15)
[2021-01-28] MEDS: INSULIN GLARGINE UD 100 UNITS/ML SYR SUBCUT SCH (22:06)
[2021-01-29] VITALS: BP 121/70
[2021-01-29] MEDS: NITROGLYCERIN OINT 1GM/INCH UDPKT TD SCH ×3 (00:37→12:25)
[2021-01-29 04:00] VITALS: BP 98/55
[2021-01-29 06:00] VITALS: BP 127/88
[2021-01-29] MEDS: BLOOD SUGAR DIAGNOSTIC STRIP TEST SCH ×3 (06:16→16:12)
[2021-01-29] MEDS: INSULIN LISPRO 100 UNITS/ML SUBCUT SCH ×2 (06:17→12:34)
[2021-01-29 07:10] LABS: EOSINOPHILS % 5.3 % (0.0-5.0); HEMATOCRIT. 41.4 % (42.0-52.0); HEMOGLOBIN. 13.6 g/dL (14.0-18.0); LYMPHOCYTES % 35.1 % (20.0-50.0); MEAN CORPUSCULAR HEMOGLOBIN 29.6 pg (28.0-32.0); MEAN PLATELET VOLUME 7.6 fl (7.4-10.4); MONOCYTES % 8.8 % (2.0-8.0); NEUTROPHILS % 49.8 % (40.0-76.0); PLATELET 233 x1000/uL (130-400); RED CELL DISTRIBUTION WIDTH 13.1 % (11.6-14.6)
[2021-01-29 07:17] LABS: CHLORIDE 103 mEq/L (98-107)
[2021-01-29 08:12] VITALS: BP 141/83
[2021-01-29] MEDS: AMLODIPINE 5MG TABLET PO SCH (09:49)
[2021-01-29] MEDS: LEVETIRACETAM 500MG TABLET PO SCH (09:49)
[2021-01-29] MEDS: ASPIRIN 81MG EC TABLET PO SCH (09:49)
[2021-01-29] MEDS: CLOPIDOGREL 75MG TABLET PO SCH (09:50)
[2021-01-29] MEDS: FUROSEMIDE 40MG TABLET PO SCH (09:50)
[2021-01-29] MEDS: FENOFIBRATE NANOCRYSTALLIZED 145MG TABLET PO SCH (09:56)
[2021-01-29 12:00] VITALS: BP 122/95
[2021-01-29 16:22] VITALS: BP 141/91
== END 2021-01-29 16:50 | disposition home or self-care (01) | DRG 192 ==
LOC: ER 17:18 → 7EST 20:38 → ENRESERV 22:47 → 7EST 01-27 01:18
PROVIDERS: ADMIT Internal Medicine; ATTEND Internal Medicine
PROC: 4A023N7 Measurement of Cardiac Sampling and Pressure, Left Heart, Percutaneous Approach (ICD-10-PCS; principal; 2021-01-28)
PROC: B2111ZZ Fluoroscopy of Multiple Coronary Arteries using Low Osmolar Contrast (ICD-10-PCS; 2021-01-28)
DX: M94.0 Chondrocostal junction syndrome [Tietze] (principal); E11.65 Type 2 diabetes mellitus with hyperglycemia; E66.01 Morbid (severe) obesity due to excess calories; I25.10 Atherosclerotic heart disease of native coronary artery without angina pectoris; E83.42 Hypomagnesemia; E78.2 Mixed hyperlipidemia; I10 Essential (primary) hypertension; R79.89 Other specified abnormal findings of blood chemistry; Z20.822 Contact with and (suspected) exposure to COVID-19; I48.0 Paroxysmal atrial fibrillation; I25.2 Old myocardial infarction; Z79.4 Long term (current) use of insulin; Z82.49 Family history of ischemic heart disease and other diseases of the circulatory system; Z86.73 Personal history of transient ischemic attack (TIA), and cerebral infarction without residual deficits; Z95.5 Presence of coronary angioplasty implant and graft; Z88.0 Allergy status to penicillin; Z68.37 Body mass index [BMI] 37.0-37.9, adult; Z79.899 Other long term (current) drug therapy; Z76.5 Malingerer [conscious simulation]; Z98.890 Other specified postprocedural states
CPT/HCPCS: 36415; 71045; 80048; 80053; 80061; 80305; 82550; 82553; 82962; 83036; 83735; 83880; 84443; 84484; 85025; 85379; 87426; 93005; 93306; 93458; 99291; C1769; C1887; C1893; J1644; J1815; J2250; J2270; J2405; J3010; J3475; J3490; Q9967

== ENCOUNTER 2021-10-13 11:06 | Inpatient (IN) | payer MEDICAID ==
[~2021-10-13] VITALS: Ht 177.8 cm; Wt 107.7 kg
[~2021-10-13 11:06] MED LIST changes: -GABA300S PO; -LEVE1000 PO; +METH-773 PO; -METH500T6 PO
[2021-10-13] MEDS: NITROGLYCERIN 0.4MG TABLET SL SL PRN ×3 (11:30→12:11)
[2021-10-13 12:00] LABS: CHLORIDE 99 mEq/L (98-107)
[2021-10-13 12:21] LABS: BASOPHILS % 1.1 % (0.0-2.0); EOSINOPHILS % 1.8 % (0.0-5.0); HEMATOCRIT. 48.6 % (42.0-52.0); HEMOGLOBIN. 16.4 g/dL (14.0-18.0); LYMPHOCYTES % 28.4 % (20.0-50.0); MEAN CORPUSCULAR HEMOGLOBIN 30.2 pg (28.0-32.0); MEAN CORPUSCULAR VOLUME 89.6 fL (80.0-94.0); MEAN PLATELET VOLUME 8.1 fl (7.4-10.4); MONOCYTES % 6.2 % (2.0-8.0); NEUTROPHILS % 62.5 % (40.0-76.0); PLATELET 338 x1000/uL (130-400); RED BLOOD CELL COUNT 5.43 mill/uL (4.7-6.1); RED CELL DISTRIBUTION WIDTH 13.4 % (11.6-14.6)
[2021-10-13] MEDS ORDERED: ASPIRIN 81MG TABLET PO ONE (13:00)
[2021-10-13] MEDS ORDERED: ENOXAPARIN 40MG/0.4ML SYR SUBCUT SCH (14:00)
[2021-10-13] MEDS ORDERED: DEXTROSE 50% WATER 50ML SYRINGE IV PRN (14:00)
[2021-10-13] MEDS ORDERED: ACETAMINOPHEN 325MG TABLET PO PRN ×2 (14:00)
[2021-10-13] MEDS ORDERED: GUAIFENESIN 200MG/10ML SUGAR FREE UDC PO PRN (14:00)
[2021-10-13] MEDS ORDERED: CLONIDINE 0.1MG TABLET PO PRN (14:00)
[2021-10-13] MEDS ORDERED: ONDANSETRON HCL 4MG/2ML INJ IV PRN (14:00)
[2021-10-13] MEDS ORDERED: NITROGLYCERIN 0.4MG TABLET SL SL PRN (14:00)
[2021-10-13] MEDS ORDERED: DOCUSATE SODIUM 100MG CAPSULE PO PRN (14:00)
[2021-10-13] MEDS ORDERED: IPRATROPIUM/ALBUTEROL 0.5-3(2.5)MG/3ML NEB NEB PRN (14:00)
[2021-10-13] MEDS ORDERED: MAGNESIUM/ALUMINUM HYDROXIDE/SIMETHICONE 30ML UDC PO PRN (14:00)
[2021-10-13 14:33] LABS: ETHANOL BLOOD < 10 mg/dL
[2021-10-13 14:36] LABS: LDL CHOLESTEROL 229 mg/dL (5-100)
[2021-10-13 14:38] LABS: HDL CHOLESTEROL 45 mg/dL (40-59)
[2021-10-13 14:39] LABS: T4 FREE 0.79 ng/dL (0.76-1.46); TOTAL IRON BINDING CAPACITY 436 ug/dL (250-450)
[2021-10-13 14:51] LABS: FOLIC ACID (FOLATE) SERUM 8.1 ng/mL (>5.38)
[2021-10-13] MEDS: AMLODIPINE 10MG TABLET PO SCH (15:04)
[2021-10-13] MEDS: KETOROLAC 15MG/ML VIAL IV PRN ×2 (15:05→21:50)
[2021-10-13 15:12] LABS: CLARITY URINE CLEAR (CLEAR); COLOR URINE YELLOW (YELLOW); KETONES URINE NEGATIVE (NEGATIVE); LEUKOCYTE ESTERASE URINE NEGATIVE (NEGATIVE); NITRITE URINE NEGATIVE (NEGATIVE); OCCULT BLOOD URINE NEGATIVE (NEGATIVE); PH URINE 5.5 (4.5-8.0); PROTEIN URINE 1+ (NEGATIVE); UROBILINOGEN URINE 0.2 E.U./dL (0.2-1.0)
[2021-10-13 15:25] LABS: *AMPHETAMINES SCREEN URINE NEGATIVE (NEGATIVE); *BARBITURATES SCREEN URINE NEGATIVE (NEGATIVE); *BENZODIAZEPINES SCREEN URINE NEGATIVE (NEGATIVE); *COCAINE SCREEN URINE NEGATIVE (NEGATIVE)
[2021-10-13 15:26] LABS: CANNABINOID URINE SCREEN NEGATIVE (NEGATIVE); METHADONE URINE SCREEN NEGATIVE (NEGATIVE); OPIATES URINE SCREEN NEGATIVE (NEGATIVE); PHENCYCLIDINE URINE SCREEN NEGATIVE (NEGATIVE)
[2021-10-13 16:20] LABS: CREATINE KINASE 194 IU/L (39-308)
[2021-10-13 16:21] LABS: CREATINE KINASE MB FRACTION 1.7 ng/mL (0.5-3.6)
[2021-10-13] MEDS: BLOOD SUGAR DIAGNOSTIC STRIP TEST SCH ×2 (16:45→21:26)
[2021-10-13 17:27] VITALS: BP 149/96
[2021-10-13] MEDS: INSULIN LISPRO 100 UNITS/ML SUBCUT SCH ×2 (19:37→21:41)
[2021-10-13 20:00] VITALS: BP 124/83
[2021-10-13] MEDS: ENOXAPARIN 30MG/0.3ML SYR SUBCUT SCH (21:39)
[2021-10-13] MEDS: FAMOTIDINE 20MG TABLET PO SCH (21:42)
[2021-10-13] MEDS ORDERED: INSULIN GLARGINE UD 100 UNITS/ML SYR SUBCUT SCH (22:00)
[2021-10-13] MEDS: ATORVASTATIN CALCIUM 40MG TABLET PO SCH (23:12)
[2021-10-14] VITALS: BP 136/94
[2021-10-14] MEDS: ZOLPIDEM TARTRATE 5MG TABLET PO PRN (00:07)
[2021-10-14 01:30] LABS: CREATINE KINASE 175 IU/L (39-308)
[2021-10-14 01:31] LABS: CREATINE KINASE MB FRACTION 2.1 ng/mL (0.5-3.6)
[2021-10-14 04:00] VITALS: BP 106/62
[2021-10-14] MEDS: KETOROLAC 15MG/ML VIAL IV PRN ×3 (05:34→18:10)
[2021-10-14] MEDS: BLOOD SUGAR DIAGNOSTIC STRIP TEST SCH ×4 (06:07→21:00)
[2021-10-14] MEDS: INSULIN LISPRO 100 UNITS/ML SUBCUT SCH ×4 (06:14→22:09)
[2021-10-14 08:00] VITALS: BP 125/71
[2021-10-14] MEDS: AMLODIPINE 10MG TABLET PO SCH (09:21)
[2021-10-14] MEDS: ENOXAPARIN 30MG/0.3ML SYR SUBCUT SCH ×2 (09:21→22:08)
[2021-10-14] MEDS: ASPIRIN 325MG EC TABLET PO SCH (09:21)
[2021-10-14 09:29] LABS: BASOPHILS % 0.2 % (0.0-2.0); EOSINOPHILS % 2.6 % (0.0-5.0); HEMOGLOBIN. 14.4 g/dL (14.0-18.0); LYMPHOCYTES % 32.4 % (20.0-50.0); MEAN CORPUSCULAR HEMOGLOBIN 29.7 pg (28.0-32.0); MEAN CORPUSCULAR VOLUME 88.7 fL (80.0-94.0); MEAN PLATELET VOLUME 7.8 fl (7.4-10.4); MONOCYTES % 7.9 % (2.0-8.0); NEUTROPHILS % 56.9 % (40.0-76.0); PLATELET 282 x1000/uL (130-400); RED BLOOD CELL COUNT 4.85 mill/uL (4.7-6.1); RED CELL DISTRIBUTION WIDTH 13.3 % (11.6-14.6)
[2021-10-14 09:44] LABS: CHLORIDE 98 mEq/L (98-107)
[2021-10-14 09:54] LABS: PHOSPHORUS 3.4 mg/dL (2.5-4.9)
[2021-10-14] MEDS: FAMOTIDINE 20MG TABLET PO SCH ×2 (11:03→22:09)
[2021-10-14 12:00] VITALS: BP 138/74
[2021-10-14] MEDS ORDERED: INSULIN GLARGINE UD 100 UNITS/ML SYR SUBCUT SCH (12:30)
[2021-10-14] MEDS: INSULIN GLARGINE UD 100 UNITS/ML SYR SUBCUT SCH ×2 (15:19→22:10)
[2021-10-14 16:00] VITALS: BP 125/68
[2021-10-14 20:00] VITALS: BP 126/74
[2021-10-15 00:34] VITALS: BP 142/88
[2021-10-15] MEDS: KETOROLAC 15MG/ML VIAL IV PRN ×2 (01:00→10:44)
[2021-10-15] MEDS: ZOLPIDEM TARTRATE 5MG TABLET PO PRN (01:00)
[2021-10-15] MEDS: ATORVASTATIN CALCIUM 40MG TABLET PO SCH (02:00)
[2021-10-15 04:00] VITALS: BP 128/68
[2021-10-15] MEDS: BLOOD SUGAR DIAGNOSTIC STRIP TEST SCH ×2 (05:53→11:38)
[2021-10-15] MEDS: INSULIN LISPRO 100 UNITS/ML SUBCUT SCH ×2 (06:33→12:14)
[2021-10-15 08:00] VITALS: BP 117/63
[2021-10-15] MEDS ORDERED: REGADENOSON 0.4 MG/5 ML IV ONE ×2 (08:30→09:08)
[2021-10-15] MEDS ORDERED: FUROSEMIDE 40MG/4ML VIAL IVP NR (09:00)
[2021-10-15] MEDS: INSULIN GLARGINE UD 100 UNITS/ML SYR SUBCUT SCH (10:00)
[2021-10-15] MEDS: ASPIRIN 325MG EC TABLET PO SCH (10:44)
[2021-10-15] MEDS: AMLODIPINE 10MG TABLET PO SCH (10:44)
[2021-10-15] MEDS: FAMOTIDINE 20MG TABLET PO SCH (10:44)
[2021-10-15] MEDS: ENOXAPARIN 30MG/0.3ML SYR SUBCUT SCH (10:45)
[2021-10-15 12:00] VITALS: BP 133/82
[2021-10-15 15:09] LABS: CHLORIDE 100 mEq/L (98-107)
[2021-10-15 15:18] LABS: BASOPHILS % 0.9 % (0.0-2.0); HEMATOCRIT. 42.9 % (42.0-52.0); HEMOGLOBIN. 14.4 g/dL (14.0-18.0); LYMPHOCYTES % 31.8 % (20.0-50.0); MEAN CORPUSCULAR HEMOGLOBIN 29.6 pg (28.0-32.0); MEAN CORPUSCULAR VOLUME 88.1 fL (80.0-94.0); MONOCYTES % 7.5 % (2.0-8.0); NEUTROPHILS % 57.8 % (40.0-76.0); PLATELET 257 x1000/uL (130-400); RED BLOOD CELL COUNT 4.87 mill/uL (4.7-6.1); RED CELL DISTRIBUTION WIDTH 13.2 % (11.6-14.6)
[2021-10-15 16:06] VITALS: BP 143/92
== END 2021-10-15 17:45 | disposition home or self-care (01) | DRG 203 ==
LOC: ER 11:19 → EDBEDREQ 13:21 → EDBEDREQTM 13:21 → 5WST 13:42 → EDBEDREQTM 13:44 → EDBEDREQ 13:44 → ENRESERV 16:07
PROVIDERS: ADMIT Internal Medicine; ATTEND Internal Medicine
DX: M94.0 Chondrocostal junction syndrome [Tietze] (principal); E11.00 Type 2 diabetes mellitus with hyperosmolarity without nonketotic hyperglycemic-hyperosmolar coma (NKHHC); E11.40 Type 2 diabetes mellitus with diabetic neuropathy, unspecified; E87.1 Hypo-osmolality and hyponatremia; I25.10 Atherosclerotic heart disease of native coronary artery without angina pectoris; E66.01 Morbid (severe) obesity due to excess calories; E78.5 Hyperlipidemia, unspecified; E88.09 Other disorders of plasma-protein metabolism, not elsewhere classified; Z20.822 Contact with and (suspected) exposure to COVID-19; I10 Essential (primary) hypertension; Z79.4 Long term (current) use of insulin; Z82.49 Family history of ischemic heart disease and other diseases of the circulatory system; Z86.73 Personal history of transient ischemic attack (TIA), and cerebral infarction without residual deficits; Z95.5 Presence of coronary angioplasty implant and graft; Z79.899 Other long term (current) drug therapy; Z68.34 Body mass index [BMI] 34.0-34.9, adult; Z88.0 Allergy status to penicillin; E11.65 Type 2 diabetes mellitus with hyperglycemia
CPT/HCPCS: 36415; 71045; 78452; 80048; 80053; 80061; 80305; 80320; 81003; 82550; 82553; 82607; 82746; 82962; 83036; 83540; 83550; 83735; 83880; 83930; 84100; 84439; 84484; 85025; 87426; 93005; 93017; 93306; 93970; 99285; A9500; J1650; J1815; J1885; J1940; J2785; G0480

== ENCOUNTER 2022-02-09 14:20 | Inpatient (IN) | payer MEDICAID ==
[~2022-02-09] VITALS: Ht 177.8 cm; Wt 114.8 kg
[~2022-02-09 14:20] MED LIST changes: -AMLO5TAB4 PO; -DIAZ10TA4 MT; -DULO60CA44 PO; +DULO60CA45 PO; -EMPA1TAB5 PO; -FLUT100B IH; -INSU100I24 SQ; -KEPP500 PO
[2022-02-09] MEDS ORDERED: MORPHINE SULFATE 4 MG/ML CPJ (NOT FOR IM USE) IV ONE (22:00)
[2022-02-09 22:20] LABS: BASOPHILS % 1.1 % (0.0-2.0); EOSINOPHILS % 2.6 % (0.0-5.0); HEMATOCRIT. 41.8 % (42.0-52.0); HEMOGLOBIN. 13.7 g/dL (14.0-18.0); LYMPHOCYTES % 37.3 % (20.0-50.0); MEAN CORPUSCULAR HEMOGLOBIN 29.1 pg (28.0-32.0); MEAN CORPUSCULAR VOLUME 88.7 fL (80.0-94.0); MONOCYTES % 9.9 % (2.0-8.0); NEUTROPHILS % 49.1 % (40.0-76.0); PLATELET 267 x1000/uL (130-400); RED BLOOD CELL COUNT 4.71 mill/uL (4.7-6.1); RED CELL DISTRIBUTION WIDTH 14.1 % (11.6-14.6)
[2022-02-09 22:40] LABS: CHLORIDE 100 mEq/L (98-107)
[2022-02-10] MEDS ORDERED: ONDANSETRON HCL 4MG/2ML INJ IV ONE (00:15)
[2022-02-10 09:00] VITALS: BP 129/97
[2022-02-10] MEDS ORDERED: FLUT100B IH (09:42)
[2022-02-10] MEDS ORDERED: ALBUL GT (09:44)
[2022-02-10] MEDS ORDERED: FENO145 MT (09:46)
[2022-02-10] MEDS ORDERED: INSU100I24 SUBCUT (09:46)
[2022-02-10] MEDS ORDERED: ATOR80TA MT (09:46)
[2022-02-10] MEDS ORDERED: FURO-151 MT (10:11)
[2022-02-10] MEDS ORDERED: PRED5DRO22 RIGHTEYE (10:11)
[2022-02-10] MEDS ORDERED: HYDR-4009 MT (10:11)
[2022-02-10] MEDS ORDERED: PRED5DRO22 LEFTEYE (10:11)
[2022-02-10] MEDS ORDERED: BRIM5DRO6 EACHEYE (10:11)
[2022-02-10] MEDS ORDERED: CLOP-31 PO (10:11)
[2022-02-10] MEDS ORDERED: BUSP10TA4 PO (10:11)
[2022-02-10] MEDS ORDERED: FERR325T6 MT (10:11)
[2022-02-10] MEDS ORDERED: GARL1000 PO (10:11)
[2022-02-10] MEDS ORDERED: FLAX100032 PO (10:11)
[2022-02-10] MEDS ORDERED: OMEG-119 MT (10:11)
[2022-02-10] MEDS ORDERED: DULO60CA45 MT (10:11)
[2022-02-10] MEDS ORDERED: NITR0.4T49 SL (10:11)
[2022-02-10 10:27] VITALS: BP 129/97
[2022-02-10 12:00] VITALS: BP 137/83
[2022-02-10] MEDS ORDERED: NALOXONE HCL 0.4MG/ML VIAL IV PRN (12:15)
[2022-02-10] MEDS: HYDROCODONE/ACETAMINOPHEN 10/325MG TABLET PO PRN ×2 (12:44→17:15)
[2022-02-10] MEDS ORDERED: ACETAMINOPHEN 325MG TABLET PO PRN (13:00)
[2022-02-10] MEDS ORDERED: DEXTROSE 50% WATER 50ML SYRINGE IV PRN (13:00)
[2022-02-10] MEDS ORDERED: INSULIN GLARGINE 100 UNITS/ML SUBCUT NR (13:00)
[2022-02-10] MEDS: INSULIN LISPRO 100 UNITS/ML SUBCUT SCH ×4 (13:05→20:45)
[2022-02-10] MEDS: CLOPIDOGREL 75MG TABLET PO SCH (14:13)
[2022-02-10 16:00] VITALS: BP 114/64
[2022-02-10] MEDS: BLOOD SUGAR DIAGNOSTIC STRIP TEST SCH ×2 (17:08→20:44)
[2022-02-10] MEDS: INSULIN GLARGINE 100 UNITS/ML SUBCUT SCH (21:29)
[2022-02-11] VITALS: BP 119/81
[2022-02-11] MEDS: HYDROCODONE/ACETAMINOPHEN 10/325MG TABLET PO PRN ×2 (03:07→09:09)
[2022-02-11 04:00] VITALS: BP 129/81
[2022-02-11] MEDS: BLOOD SUGAR DIAGNOSTIC STRIP TEST SCH ×2 (06:32→12:26)
[2022-02-11] MEDS: INSULIN LISPRO 100 UNITS/ML SUBCUT SCH ×2 (07:55→13:01)
[2022-02-11 08:00] VITALS: BP 118/61
[2022-02-11] MEDS ORDERED: ASPIRIN 81MG TABLET PO SCH (09:00)
[2022-02-11] MEDS: CLOPIDOGREL 75MG TABLET PO SCH (09:07)
[2022-02-11] MEDS: INSULIN GLARGINE 100 UNITS/ML SUBCUT SCH (09:10)
[2022-02-11 12:00] VITALS: BP 125/74
[2022-02-11 12:14] VITALS: BP 125/74
== END 2022-02-11 13:45 | disposition home or self-care (01) | DRG 203 ==
LOC: ER 14:25 → MICUSO 02-10 00:05 → 7WST 02-10 09:31
PROVIDERS: ADMIT Internal Medicine; ATTEND Internal Medicine
DX: M94.0 Chondrocostal junction syndrome [Tietze] (principal); E11.9 Type 2 diabetes mellitus without complications; I25.10 Atherosclerotic heart disease of native coronary artery without angina pectoris; E66.01 Morbid (severe) obesity due to excess calories; I10 Essential (primary) hypertension; I48.91 Unspecified atrial fibrillation; E78.00 Pure hypercholesterolemia, unspecified; E78.5 Hyperlipidemia, unspecified; J44.9 Chronic obstructive pulmonary disease, unspecified; F12.90 Cannabis use, unspecified, uncomplicated; Z88.0 Allergy status to penicillin; Z68.36 Body mass index [BMI] 36.0-36.9, adult; I25.2 Old myocardial infarction; Z79.82 Long term (current) use of aspirin; Z86.73 Personal history of transient ischemic attack (TIA), and cerebral infarction without residual deficits; Z95.5 Presence of coronary angioplasty implant and graft; Z79.899 Other long term (current) drug therapy; Z82.49 Family history of ischemic heart disease and other diseases of the circulatory system
CPT/HCPCS: 36415; 71045; 80053; 82962; 83880; 84484; 85025; 93005; 99285; J1815; J2270; J2405

== ENCOUNTER 2022-03-21 17:13 | Emergency (ER) | payer MEDICAID ==
[~2022-03-21] VITALS: Ht 172.7 cm; Wt 105.0 kg
[~2022-03-21 17:13] MED LIST changes: +ALBUL GT; +ATOR80TA MT; +BRIM5DRO6 EACHEYE; +BUSP10TA4 PO; +CLOP-31 PO; +DULO60CA45 MT; +FENO145 MT; +FLAX100032 PO; +FLUT100B IH; +FURO-151 MT; +GARL1000 PO; +HYDR-4009 MT; +INSU100I24 SUBCUT; +OMEG-119 MT; +PRED5DRO22 LEFTEYE; +PRED5DRO22 RIGHTEYE
[2022-03-21] MEDS ORDERED: NITROGLYCERIN 0.4MG TABLET SL SL PRN (21:45)
[2022-03-21] MEDS ORDERED: ASPIRIN 81MG TABLET PO ONE (21:45)
[2022-03-21 23:09] LABS: BASOPHILS % 1.2 % (0.0-2.0); EOSINOPHILS % 1.9 % (0.0-5.0); HEMATOCRIT. 39.7 % (42.0-52.0); HEMOGLOBIN. 12.8 g/dL (14.0-18.0); LYMPHOCYTES % 31.8 % (20.0-50.0); MEAN CORPUSCULAR HEMOGLOBIN 29.7 pg (28.0-32.0); MEAN PLATELET VOLUME 7.7 fl (7.4-10.4); MONOCYTES % 8.7 % (2.0-8.0); NEUTROPHILS % 56.4 % (40.0-76.0); PLATELET 275 x1000/uL (130-400); RED BLOOD CELL COUNT 4.31 mill/uL (4.7-6.1); RED CELL DISTRIBUTION WIDTH 14.9 % (11.6-14.6)
[2022-03-21 23:15] LABS: CHLORIDE 98 mEq/L (98-107)
[2022-03-22] VITALS: BP_DIAS 69
[2022-03-22 01:46] VITALS: BP_SYST 123
== END 2022-03-22 01:47 | disposition home or self-care (01) ==
LOC: ER 17:13
DX: R07.89 Other chest pain (principal); J44.9 Chronic obstructive pulmonary disease, unspecified; E78.00 Pure hypercholesterolemia, unspecified; I10 Essential (primary) hypertension; I25.2 Old myocardial infarction; F12.10 Cannabis abuse, uncomplicated
CPT/HCPCS: 36415; 70450; 71045; 80053; 83880; 84484; 85025; 99285; Z7610

== ENCOUNTER 2024-04-30 12:34 | Emergency (ER) | payer MEDICAID ==
[~2024-04-30] VITALS: Ht 177.8 cm; Wt 107.0 kg
[~2024-04-30 12:34] MED LIST changes: +ALBU2SYR23 GT; -ALBUL GT; -GARL1000 PO; +GARL10002 PO; -GARL500C2 PO; +GARL500C6 PO
[2024-04-30 12:54] VITALS: O2SAT 98
[2024-04-30 13:20] LABS: BASOPHILS % 1.4 % (0.0-2.0); EOSINOPHILS % 2.7 % (0.0-5.0); HEMOGLOBIN. 15.9 g/dL (14.0-18.0); LYMPHOCYTES % 30.8 % (20.0-50.0); MEAN CORPUSCULAR HGB CONC 31.8 g/dL (31.0-37.0); MEAN CORPUSCULAR VOLUME 91.1 fL (80.0-94.0); MEAN PLATELET VOLUME 8.2 fl (7.4-10.4); MONOCYTES % 6.7 % (2.0-8.0); NEUTROPHILS % 58.4 % (40.0-76.0); PLATELET 373 x1000/uL (130-400); RED BLOOD CELL COUNT 5.49 mill/uL (4.7-6.1); RED CELL DISTRIBUTION WIDTH 13.8 % (11.6-14.6); WHITE BLOOD COUNT 9.9 x1000/uL (4.5-11.0)
[2024-04-30 13:30] LABS: CHLORIDE 97 mEq/L (98-107); POTASSIUM 3.7 mEq/L (3.5-5.1); SODIUM 132 mEq/L (136-145)
[2024-04-30 13:31] LABS: CARBON DIOXIDE 24 mEq/L (21-32)
[2024-04-30 13:36] LABS: CREATININE 1.4 mg/dL (0.6-1.3); GLUCOSE 260 mg/dL (70-105); UREA NITROGEN BLOOD 12 mg/dL (9-23)
[2024-04-30 13:38] LABS: ALANINE AMINOTRANSFERASE 25 IU/L (10-49); ALBUMIN 4.4 g/dL (3.2-4.8); ASPARTATE AMINOTRANSFERASE 21 IU/L (<34); BILIRUBIN TOTAL 0.3 mg/dL (0.1-1.0)
[2024-04-30 13:39] LABS: PROTEIN TOTAL 7.6 g/dL (6.0-8.3)
[2024-04-30 13:46] LABS: BILIRUBIN DIRECT < 0.1 mg/dL (<=3.0); TROPONIN I HIGH SENSITIVITY < 4 ng/L (3.0-53)
[2024-04-30 16:22] LABS: TROPONIN I HIGH SENSITIVITY < 4 ng/L (3.0-53)
[2024-04-30] MEDS: INSULIN REGULAR (HUMULIN R) 1000UNITS/10ML VIAL SUBCUT NR (17:22)
[2024-04-30 19:16] VITALS: BP 138/76; PULSE 100; RESP 20; TEMP 37.05852; O2SAT 98
== END 2024-04-30 19:17 | disposition home or self-care (01) ==
LOC: ER 12:34
DX: R07.9 Chest pain, unspecified (principal); E78.00 Pure hypercholesterolemia, unspecified; I10 Essential (primary) hypertension; I25.2 Old myocardial infarction; J44.89 Other specified chronic obstructive pulmonary disease; F12.90 Cannabis use, unspecified, uncomplicated; Z79.899 Other long term (current) drug therapy; Z86.73 Personal history of transient ischemic attack (TIA), and cerebral infarction without residual deficits; Z90.89 Acquired absence of other organs; Z88.0 Allergy status to penicillin
CPT/HCPCS: 99285; 71045; 80076; 80048; 85025; 84484; 36415; 93005; 96372; J1815